=== PATIENT | male | born 1980 | race Two or more races ===

== ENCOUNTER 2022-11-15 11:46 | Inpatient (IN) | payer OTHER, SELFPAY ==
[2022-11-15 12:02] VITALS: BP 117/78; PULSE 72; PULSE 74; RESP 16; TEMP 36.6; O2SAT 98; BMI 20.9
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
[2022-11-15 12:55] LABS: Amphetamine Screen Urine Not Detected (Not Detect); Barbiturates, Urine Not Detected (Not Detect); Benzodiazepines Screen Urine Not Detected (Not Detect); Cannabinoid Screen Urine Not Detected (Not Detect); Cocaine Screen Urine POSITIVE (Not Detect); Fentanyl, urine POSITIVE (Not Detect); Opiate Screen Urine Not Detected (Not Detect); Phencyclidine Screen Urine Not Detected (Not Detect)
--- NOTE | 2022-11-15 12:59 | PC.NURSE ---
provider (alicia Flores) at bedside pt aware of plan of care.
[2022-11-15 13:01] LABS: COVID-19 Test Negative (Negative); IDNOW Serial# BCCEAD1C
[2022-11-15 13:31] LABS: MANUAL DIFF FLAG NO
[2022-11-15 13:33] LABS: Basophils Percent Auto 0.6 % (0-2); Eosinophils Absolute Auto 0.2 X10*3/uL (0.0-0.4); Eosinophils Percent Auto 2.9 % (0-4); Hematocrit 41.9 % (42.0-52.0); Hemoglobin 14.3 g/dl (14.0-18.0); Imm Gran Abs Auto 0.02 X10*3/uL (0.00-0.03); Imm Gran Pct Auto 0.3 % (0.0-0.4); Lymphocytes Absolute Auto 1.8 X10*3/uL (1.2-4.9); Lymphocytes Percent Auto 26.1 % (20-40); Mean Corpuscular HGB Conc 34.1 g/dl (31.0-36.0); Mean Corpuscular Hemoglobin 30.4 pg (27.0-33.0); Mean Corpuscular Volume 89.1 fL (80.0-98.0); Mean Platelet Volume 9.4 fL (9.4-12.4); Monocytes Absolute Auto 0.7 X10*3/uL (0.1-1.2); Monocytes Percent Auto 9.3 % (2-11); Neutrophils Absolute Auto 4.3 x10*3/uL (2.0-8.3); Neutrophils Percent Auto 60.8 % (45-73); Platelet Count 294 X10*3/uL (160-400); Red Cell Distribution Width 12.7 % (11.0-16.0)
[2022-11-15 14:07] LABS: Alanine Aminotransferase 31 U/L (0-40); Albumin Level 4.4 g/dL (3.5-5.0); Alkaline Phosphatase 76 U/L (39-117); Anion Gap 10 (12-20); Aspartate Amino Transferase 22 U/L (5-37); Bilirubin Direct 0.3 mg/dL (0.0-0.5); Bilirubin Total 1.5 mg/dL (0.0-1.0); Blood Urea Nitrogen 17 mg/dL (9-16); Calcium 9.1 mg/dL (8.4-10.2); Carbon Dioxide 30 mmol/L (22-29); Chloride 105 mmol/L (96-108); Creatinine Clr Calc Pharmacy 120.8; Estimated Glomerular Filt Rate > 60; Ethanol < 10 mg/dL; Glucose Random 94 mg/dL (60-115); Magnesium 2.1 mg/dL (1.6-2.6); Potassium 4.3 mmol/L (3.3-5.1); Sodium 141 mmol/L (135-145)
[2022-11-15] MEDS: LORazepam 0.5 MG TABLET PO (18:50)
--- NOTE | 2022-11-15 19:15 | PC.NURSE ---
pt reporting increased anxiety and he was requesting some medications. Dr. Barakat ordered ativan and it was administered per MAR
--- NOTE | 2022-11-15 19:16 | MHC.CARE ---
CARE Team called E[facility], pt was seen in the community and is an inpatient bedsearch
[2022-11-16] MEDS: traZODone HCL 50 MG TABLET 150 MG PO ×2 (00:36→21:21)
[2022-11-16] MEDS: Mirtazapine 15 MG TABLET PO ×2 (00:37→21:20)
[2022-11-16] MEDS: Melatonin 3 MG TABLET PO ×2 (00:38→08:07)
[2022-11-16 05:54] VITALS: BP 120/79; PULSE 79; RESP 17; TEMP 36.6; O2SAT 98
--- NOTE | 2022-11-16 06:49 | PC.NURSE ---
Patient slept through the night, no distress observed/reported, disposition per [facility] is section 12 Inpatient Bed Search, patient pre-accepted to M3 or M5, behavior non concerning, medication compliant, VSS, will continue to monitor.
[2022-11-16] MEDS: Cholecalciferol (Vitamin D3) 25 MCG TABLET PO (08:08)
--- NOTE | 2022-11-16 08:44 | PC.NURSE ---
methadone dose conformed with [facility] of 80 mg on 11/14 with take home for 11/15. conformation faxed to pharm
--- NOTE | 2022-11-16 09:04 | ECG_ITS ---
Test Reason : check qt Blood Pressure : / mmHG Vent. Rate : 075 BPM Atrial Rate : 075 BPM P-R Int : 156 ms QRS Dur : 080 ms QT Int : 384 ms P-R-T Axes : 001 046 046 degrees QTc Int : 428 ms Normal sinus rhythm Normal ECG No previous ECGs available Referred By: Sunil Camacho Electronically Signed By:Christiano Hemphill
--- NOTE | 2022-11-16 09:27 | HE.PHANOTE ---
RE: methadone verification Last dose of [address] [facility] in [place] on 11/14 with take home dose given for 11/15. Verified by Mukesh at clinic on 11/16 @[id number]
[2022-11-16] MEDS: methADONE HCl 20 MG/2 ML ORAL.CONC 80 MG PO (11:52)
--- NOTE | 2022-11-16 14:45 | HE.PHANOTE ---
RE METHADONE 80 MG FROM [facility]
[2022-11-16 17:30] VITALS: BP 108/62; PULSE 86; RESP 20; TEMP 36.7; O2SAT 98
--- NOTE | 2022-11-16 19:14 | PC.ADMIT ---
Nursing Admission Note: Patient is a 42-year-old male. Dx: Unspecified Depressive Disorder. Signed conditional voluntary for admission. Patient presented to [facility] following community assessment due to increased depression with suicidal ideation. Patient easily engaged, calm and cooperative with admission process. Depressed mood, congruent affect. Hopelessness. Presents with good eye contact. Attending to ADLs. Thoughts clear, linear and organized. Patient denies perceptual disturbances. Denies AH/VH. No overt psychosis or expressed delusions. Patient reports major life stressors including of a family member, divorce after 20 years, homelessness, and recent verbal altercation with his mother. Feeling as though he's lost control , reports increased suicidal ideation with plan to jump in the river. Denies HI at this time. Reports recent relapse on heroin after 17 days sober, denies alcohol use. 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 Denies current legal entanglements. Currently on methadone replacement therapy, dose verified with [facility] in [place]. Reports smoking 2 cigarettes daily, declined NRT. TOX screen positive for Cocaine and Fentanyl. Reports sleep disturbance, difficulty falling and maintaining sleep. Reports nightmares. Reports decreased appetite with weight loss of approximately 30 pounds in 6 months. Medical history includes anemia, wears glasses (with patient). Allergy to seafood. COVID negative. Patient hopes to get back to being himself . Patient oriented to unit. Placed on 15 minute safety checks. See nursing assessment/crisis evaluation for further details.
[2022-11-16 20:10] VITALS: BP 113/70; PULSE 75; RESP 18; TEMP 36.8; O2SAT 100
[2022-11-16] MEDS: hydrOXYzine HCL 50 MG TABLET PO (21:21)
[2022-11-16] MEDS: cloNIDine HCL 0.1 MG TABLET PO (21:21)
[2022-11-17 06:00] VITALS: BP 93/51; PULSE 83; RESP 18; TEMP 36.7; O2SAT 100
[2022-11-17] MEDS: methADONE HCl 20 MG/2 ML ORAL.CONC 80 MG PO (09:55)
[2022-11-17] MEDS: Melatonin 3 MG TABLET PO ×2 (09:55→21:13)
[2022-11-17] MEDS: Cholecalciferol (Vitamin D3) 25 MCG TABLET PO (09:55)
[2022-11-17] MEDS: hydrOXYzine HCL 50 MG TABLET PO (09:59)
--- NOTE | 2022-11-17 11:08 | MHC.CLN ---
NUTRITION CONSULT FOR 30# WEIGHT LOSS X 6 MONTHS. VISITED WITH PATIENT IN HIS ROOM. REPORTS UBW [id number]#. CURRENT GPQFYB=504#. WOULD LIKE ENSURE SUPPLEMENT THREE TIMES DAILY. PREFERS [facility]. DINING SERVICES AWARE. SUPPLEMENT PROVIDES 1050 KCALS, 60 G PROTEIN. MADE OWN MEAL CHOICES. AWARE OF SNACKS ON UNIT.
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
[2022-11-17] MEDS: Mirtazapine 30 MG TABLET PO (21:13)
[2022-11-17] MEDS: cloNIDine HCL 0.1 MG TABLET PO (21:13)
[2022-11-17] MEDS: traZODone HCL 50 MG TABLET 150 MG PO (21:14)
[2022-11-17 21:16] VITALS: BP 112/62; PULSE 85; TEMP 36.6; O2SAT 97
[2022-11-18 08:30] VITALS: BP 101/60; PULSE 78; RESP 18; TEMP 36.6; O2SAT 98
[2022-11-18] MEDS: Cholecalciferol (Vitamin D3) 25 MCG TABLET PO (09:30)
[2022-11-18] MEDS: methADONE HCl 20 MG/2 ML ORAL.CONC 80 MG PO (09:31)
[2022-11-18] MEDS: hydrOXYzine HCL 25 MG TABLET PO ×2 (09:44→17:51)
--- NOTE | 2022-11-18 14:06 | HO.PSYCHPN ---
Subjective Subjective Date of Service: 11/18/22 Reason For Visit: SI Interim History: calm, cooperative. states he slept well. c/o low back pain. not using nicotine patch and lidocaine patch bcse he believes they are not helping him. per staff, anx/dep 8/10. eating and sleeping. refusing patches. Mental Status Exam Mental Status Exam Narrative: adequately dressed and groomed. cooperative. no PMA/PMR. fair eye contact. speech soft, nml amount, decreased prosody. thoughts linear and logical. affect constricted. mood i'm good. no SI/SIBI/HI/AVH expressed. Diagnostics Vital Signs (24Hr): Vital Signs - 24 hr 11/17/22 21:16 11/18/22 08:30 Temperature 97.9 F 97.9 F Pulse Rate 85 78 Respiratory Rate 18 Blood Pressure 112/62 101/60 Pulse Oximetry 97 98 Oxygen Delivery Method Room Air Room Air BMI result Body Mass Index 20.9 Labs 11/15/22 13:27 11/15/22 13:27 Medications Medications Current Medications Acetaminophen (Acetaminophen 325 Mg Tablet) 650 mg PO Q6H PRN PRN Reason: Headache/Pain Mild Scale (1-3) Al Hydroxide/Mg Hydroxide (Magnesium Hydrox/Alum Hydrox 30 Ml Oral.Susp) 30 ml PO Q6H PRN PRN Reason: Heartburn/Nausea Clonidine HCl (Clonidine Hcl 0.1 Mg Tablet) 0.1 mg PO BEDTIME RASHMI; Protocol Last Admin: 11/17/22 21:13 Dose: 0.1 mg Hydroxyzine HCl (Hydroxyzine Hcl 25 Mg Tablet) 25 mg PO Q6H PRN PRN Reason: Anxiety Last Admin: 11/18/22 09:44 Dose: 25 mg Magnesium Hydroxide (Milk Of Magnesia 30 Ml Oral.Susp) 30 ml PO DAILY PRN PRN Reason: Constipation Melatonin (Melatonin 3 Mg Tablet) 3 mg PO BEDTIME RASHMI Methadone HCl (Methadone Hcl 20 Mg/2 Ml Oral.Conc) 80 mg PO DAILY RASHMI Last Admin: 11/18/22 09:31 Dose: 80 mg Mirtazapine (Mirtazapine 30 Mg Tablet) 30 mg PO BEDTIME RASHMI Last Admin: 11/17/22 21:13 Dose: 30 mg Nicotine Polacrilex (Nicotine Polacrilex 2 Mg Gum) 2 mg BUCCAL Q2H PRN PRN Reason: Nicotine Cravings Trazodone HCl (Trazodone Hcl 50 Mg Tablet) 150 mg PO BEDTIME [facility] Last Admin: 11/17/22 21:14 Dose: 150 mg Trazodone HCl (Trazodone Hcl 50 Mg Tablet) 50 mg PO BEDTIME MRX1 PRN PRN Reason: Insomnia Vitamin D (Cholecalciferol (Vitamin D3) 25 Mcg Tablet) 25 mcg PO DAILY [facility] Last Admin: 11/18/22 09:30 Dose: 25 mcg Allergies Allergies Allergy/AdvReac Type Severity Reaction Status Date / Time seafood Allergy Anaphylaxis Verified 11/15/22 12:23 Assessment & Plan Assessment & Plan (1) Polysubstance abuse: Status: Acute Code(s): F19.10 - Other psychoactive substance abuse, uncomplicated (2) Depression: Status: Acute Code(s): F32.A - Depression, unspecified Plan 11/17: increase remeron from 15 mg QHS to 30 mg QHS for sleep and depression. continues methadone 80, trazodone 150, and clonidine 0.1 daily as well. refer to [facility], per pt request. 11/18: slept well last night. referrals to [facility] underway. continue detox through the weekend, reassess on monday. Reason for contiued inpatient stay Substantial Risk for: inability to function and rapid decompensation Time Spent With Patient Time: Total time managing care of this patient today __25__ minutes.
[2022-11-18 21:20] VITALS: BP 118/69; PULSE 82; RESP 18; TEMP 36.4; O2SAT 98
[2022-11-18] MEDS: Mirtazapine 30 MG TABLET PO (21:25)
[2022-11-18] MEDS: Melatonin 3 MG TABLET PO (21:25)
[2022-11-18] MEDS: cloNIDine HCL 0.1 MG TABLET PO (21:25)
[2022-11-18] MEDS: traZODone HCL 50 MG TABLET 150 MG PO (21:26)
[2022-11-19 08:30] VITALS: BP 113/62; PULSE 78; RESP 18; TEMP 36.6; O2SAT 100
[2022-11-19] MEDS: Cholecalciferol (Vitamin D3) 25 MCG TABLET PO (10:21)
[2022-11-19] MEDS: methADONE HCl 20 MG/2 ML ORAL.CONC 80 MG PO (10:22)
--- NOTE | 2022-11-19 11:46 | HO.PSYCHPN ---
Subjective Subjective Date of Service: 11/19/22 Reason For Visit: SI Subjective Notes: Conditional Voluntary Interim History: The staff reported the patient slept well, he denies active suicidal ideation he reports that he is feeling better here in the facility. He reported to the staff and he wants to go program after discharge from this facility. On interview the patient denies new symptoms, he is content with the current treatment. Mental Status Exam Mental Status Exam Patient Appearance: Appropriate Patient Orientation: Person and Situation Level of Consciousness: Awake and Appropriate Patient Behavior: Passive Mood Description: Calm Affect Description: Constricted Patient Cognition Impaired: No Ability to Follow Directions: Fair Speech Pattern: Clear Hallucinations: None Delusions: Not Present Thought Process: Linear Thought Content: positive for [place] and positive for Circumstantial Judgement: Poor Diagnostics Vital Signs (24Hr): Vital Signs - 24 hr 11/18/22 21:20 11/19/22 08:30 Temperature 97.6 F 97.9 F Pulse Rate 82 78 Respiratory Rate 18 18 Blood Pressure 118/69 113/62 Pulse Oximetry 98 100 Oxygen Delivery Method Room Air Room Air BMI result Body Mass Index 20.9 Labs 11/15/22 13:27 11/15/22 13:27 Medications Medications Current Medications Acetaminophen (Acetaminophen 325 Mg Tablet) 650 mg PO Q6H PRN PRN Reason: Headache/Pain Mild Scale (1-3) Al Hydroxide/Mg Hydroxide (Magnesium Hydrox/Alum Hydrox 30 Ml Oral.Susp) 30 ml PO Q6H PRN PRN Reason: Heartburn/Nausea Clonidine HCl (Clonidine Hcl 0.1 Mg Tablet) 0.1 mg PO BEDTIME RASHMI; Protocol Last Admin: 11/18/22 21:25 Dose: 0.1 mg Hydroxyzine HCl (Hydroxyzine Hcl 25 Mg Tablet) 25 mg PO Q6H PRN PRN Reason: Anxiety Last Admin: 11/18/22 17:51 Dose: 25 mg Magnesium Hydroxide (Milk Of Magnesia 30 Ml Oral.Susp) 30 ml PO DAILY PRN PRN Reason: Constipation Melatonin (Melatonin 3 Mg Tablet) 3 mg PO BEDTIME RASHMI Last Admin: 11/18/22 21:25 Dose: 3 mg Methadone HCl (Methadone Hcl 20 Mg/2 Ml Oral.Conc) 80 mg PO DAILY RASHMI Last Admin: 11/19/22 10:22 Dose: 80 mg Mirtazapine (Mirtazapine 30 Mg Tablet) 30 mg PO BEDTIME RASHMI Last Admin: 11/18/22 21:25 Dose: 30 mg Nicotine Polacrilex (Nicotine Polacrilex 2 Mg Gum) 2 mg BUCCAL Q2H PRN PRN Reason: Nicotine Cravings Trazodone HCl (Trazodone Hcl 50 Mg Tablet) 150 mg PO BEDTIME [facility] Last Admin: 11/18/22 21:26 Dose: 150 mg Trazodone HCl (Trazodone Hcl 50 Mg Tablet) 50 mg PO BEDTIME MRX1 PRN PRN Reason: Insomnia Vitamin D (Cholecalciferol (Vitamin D3) 25 Mcg Tablet) 25 mcg PO DAILY [facility] Last Admin: 11/19/22 10:21 Dose: 25 mcg Allergies Allergies Allergy/AdvReac Type Severity Reaction Status Date / Time seafood Allergy Anaphylaxis Verified 11/15/22 12:23 Assessment & Plan Assessment & Plan (1) Polysubstance abuse: Status: Acute Code(s): F19.10 - Other psychoactive substance abuse, uncomplicated (2) Depression: Status: Acute Code(s): F32.A - Depression, unspecified Plan 11/17: increase remeron from 15 mg QHS to 30 mg QHS for sleep and depression. continues methadone 80, trazodone 150, and clonidine 0.1 daily as well. refer to [facility], per pt request. 11/18: slept well last night. referrals to [facility] underway. continue detox through the weekend, reassess on monday. 11/19 no new symptoms, stable, no change on treatment Reason for contiued inpatient stay Substantial Risk for: inability to function, rapid decompensation and med/psych decompensation Time Spent With Patient Time: Total time managing care of this patient today _20___ minutes.
[2022-11-19 20:40] VITALS: BP 118/71; PULSE 89; RESP 18; TEMP 36.4; O2SAT 98
[2022-11-19] MEDS: Melatonin 3 MG TABLET PO (20:42)
[2022-11-19] MEDS: Mirtazapine 30 MG TABLET PO (20:42)
[2022-11-19] MEDS: cloNIDine HCL 0.1 MG TABLET PO (20:42)
[2022-11-19] MEDS: traZODone HCL 50 MG TABLET 150 MG PO (20:42)
[2022-11-20 08:15] VITALS: BP 112/72; PULSE 74; RESP 18; TEMP 36.7; O2SAT 100
[2022-11-20] MEDS: methADONE HCl 20 MG/2 ML ORAL.CONC 80 MG PO (09:30)
[2022-11-20] MEDS: Cholecalciferol (Vitamin D3) 25 MCG TABLET PO (09:30)
--- NOTE | 2022-11-20 12:57 | HO.PSYCHPN ---
Subjective Subjective Date of Service: 11/20/22 Reason For Visit: SI Subjective Notes: Conditional Voluntary Interim History: The nursing staff reported the patient slept well last night, he has been pleasant peers and staff. He had good appetite and he denies anxiety or depression. The staff has noticed that he has a brighter affect. On interview the patient denies new symptoms he is able to contract for safety in the facility. Mental Status Exam Mental Status Exam Patient Appearance: Appropriate Patient Orientation: Person and Situation Level of Consciousness: Awake and Appropriate Patient Behavior: Guarded and Passive Mood Description: Calm Affect Description: Constricted Ability to Follow Directions: Good Speech Pattern: Impoverished and Appropriate Hallucinations: None Delusions: Not Present Thought Process: Linear Thought Content: positive for Circumstantial Judgement: Fair Diagnostics Vital Signs (24Hr): Vital Signs - 24 hr 11/19/22 20:40 11/20/22 08:15 Temperature 97.6 F 98.0 F Pulse Rate 89 74 Respiratory Rate 18 18 Blood Pressure 118/71 112/72 Pulse Oximetry 98 100 Oxygen Delivery Method Room Air Room Air BMI result Body Mass Index 20.9 Labs 11/15/22 13:27 11/15/22 13:27 Medications Medications Current Medications Acetaminophen (Acetaminophen 325 Mg Tablet) 650 mg PO Q6H PRN PRN Reason: Headache/Pain Mild Scale (1-3) Al Hydroxide/Mg Hydroxide (Magnesium Hydrox/Alum Hydrox 30 Ml Oral.Susp) 30 ml PO Q6H PRN PRN Reason: Heartburn/Nausea Clonidine HCl (Clonidine Hcl 0.1 Mg Tablet) 0.1 mg PO BEDTIME RASHMI; Protocol Last Admin: 11/19/22 20:42 Dose: 0.1 mg Hydroxyzine HCl (Hydroxyzine Hcl 25 Mg Tablet) 25 mg PO Q6H PRN PRN Reason: Anxiety Last Admin: 11/18/22 17:51 Dose: 25 mg Magnesium Hydroxide (Milk Of Magnesia 30 Ml Oral.Susp) 30 ml PO DAILY PRN PRN Reason: Constipation Melatonin (Melatonin 3 Mg Tablet) 3 mg PO BEDTIME RASHMI Last Admin: 11/19/22 20:42 Dose: 3 mg Methadone HCl (Methadone Hcl 20 Mg/2 Ml Oral.Conc) 80 mg PO DAILY RASHMI Last Admin: 11/20/22 09:30 Dose: 80 mg Mirtazapine (Mirtazapine 30 Mg Tablet) 30 mg PO BEDTIME RASHMI Last Admin: 11/19/22 20:42 Dose: 30 mg Nicotine Polacrilex (Nicotine Polacrilex 2 Mg Gum) 2 mg BUCCAL Q2H PRN PRN Reason: Nicotine Cravings Trazodone HCl (Trazodone Hcl 50 Mg Tablet) 150 mg PO BEDTIME [facility] Last Admin: 11/19/22 20:42 Dose: 150 mg Trazodone HCl (Trazodone Hcl 50 Mg Tablet) 50 mg PO BEDTIME MRX1 PRN PRN Reason: Insomnia Vitamin D (Cholecalciferol (Vitamin D3) 25 Mcg Tablet) 25 mcg PO DAILY [facility] Last Admin: 11/20/22 09:30 Dose: 25 mcg Allergies Allergies Allergy/AdvReac Type Severity Reaction Status Date / Time seafood Allergy Anaphylaxis Verified 11/15/22 12:23 Assessment & Plan Assessment & Plan (1) Polysubstance abuse: Status: Acute Code(s): F19.10 - Other psychoactive substance abuse, uncomplicated (2) Depression: Status: Acute Code(s): F32.A - Depression, unspecified Plan 11/17: increase remeron from 15 mg QHS to 30 mg QHS for sleep and depression. continues methadone 80, trazodone 150, and clonidine 0.1 daily as well. refer to [facility], per pt request. 11/18: slept well last night. referrals to [facility] underway. continue detox through the weekend, reassess on monday. 11/19 no new symptoms, stable, no change on treatment 11/20 keep same treatment Reason for contiued inpatient stay Substantial Risk for: inability to function, rapid decompensation and med/psych decompensation Time Spent With Patient Time: Total time managing care of this patient today __20__ minutes.
[2022-11-20] MEDS: Acetaminophen 325 MG TABLET 650 MG PO (14:56)
[2022-11-20 20:14] VITALS: BP 112/69; PULSE 79; RESP 16; TEMP 36.6; O2SAT 100
[2022-11-20] MEDS: cloNIDine HCL 0.1 MG TABLET PO (20:17)
[2022-11-20] MEDS: Melatonin 3 MG TABLET PO (20:17)
[2022-11-20] MEDS: Mirtazapine 30 MG TABLET PO (20:17)
[2022-11-20] MEDS: traZODone HCL 50 MG TABLET 150 MG PO (20:17)
[2022-11-21 08:40] VITALS: BP 110/66; PULSE 74; RESP 18; TEMP 36.4; O2SAT 100
[2022-11-21] MEDS: Cholecalciferol (Vitamin D3) 25 MCG TABLET PO (09:44)
[2022-11-21] MEDS: methADONE HCl 20 MG/2 ML ORAL.CONC 80 MG PO (09:45)
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
[2022-11-21 20:15] VITALS: BP 131/57; PULSE 84; RESP 18; TEMP 36.6; O2SAT 100
[2022-11-21] MEDS: Melatonin 3 MG TABLET PO (21:02)
[2022-11-21] MEDS: cloNIDine HCL 0.1 MG TABLET PO (21:02)
[2022-11-21] MEDS: Mirtazapine 30 MG TABLET PO (21:02)
[2022-11-21] MEDS: traZODone HCL 50 MG TABLET 150 MG PO (21:02)
[2022-11-22] MEDS: Cholecalciferol (Vitamin D3) 25 MCG TABLET PO (08:26)
[2022-11-22] MEDS: methADONE HCl 20 MG/2 ML ORAL.CONC 80 MG PO (08:27)
--- NOTE | 2022-11-22 10:46 | PC.NURSE ---
Dejan is alert, fully oriented, pleasant and cooperative with discharge process. He denies ideation, plan or intent to harm self or others, He verbalizes understanding of discharge plan including medications and appointments
== END 2022-11-22 10:46 | disposition home or self-care (01) | DRG 754 ==
LOC: HO.ED 16:02 → HO.PADLT16 11-16 16:40
PROVIDERS: Physician Assistant; Admitting Provider Psychiatry & Neurology Psychiatry; Emergency Provider Emergency Medicine; Visit Provider Psychiatry & Neurology Psychiatry
DX: F32.A Depression, unspecified (principal); R45.851 Suicidal ideations; F11.20 Opioid dependence, uncomplicated; F19.10 Other psychoactive substance abuse, uncomplicated; Z20.822 Contact with and (suspected) exposure to COVID-19; Z59.02 Unsheltered homelessness; Z79.899 Other long term (current) drug therapy
CPT/HCPCS: 80048; 80076; 80307; 82077; 83735; 85025; 87635; 93005; 99285

== ENCOUNTER 2023-09-07 16:43 | Inpatient (IN) | payer OTHER, SELFPAY ==
[2023-09-07 16:58] VITALS: BP 123/89; PULSE 87; RESP 18; TEMP 37.1; O2SAT 95; BMI 23.1
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
[2023-09-07 17:38] LABS: Alanine Aminotransferase 13 U/L (0-40); Albumin Level 4.4 g/dL (3.5-5.0); Alkaline Phosphatase 83 U/L (39-117); Anion Gap 13 (12-20); Aspartate Amino Transferase 16 U/L (5-37); Bilirubin Total 0.7 mg/dL (0.0-1.0); Blood Urea Nitrogen 14 mg/dL (9-16); Calcium 9.6 mg/dL (8.4-10.2); Carbon Dioxide 26 mmol/L (22-29); Chloride 106 mmol/L (96-108); Creatinine Clr Calc Pharmacy 139.9; Estimated Glomerular Filt Rate > 60; Ethanol < 10 mg/dL; Glucose Random 99 mg/dL (60-115); Sodium 141 mmol/L (135-145); Total Protein 7.8 g/dL (6.5-8.0)
--- NOTE | 2023-09-07 19:05 | PC.NURSE ---
Addendum entered by Mary Alejo 09/07/23 19:06: at rest Original Note: patient appears to remain asleep at present respirations are even and unlabored patient appears in no distress
[2023-09-08 02:51] VITALS: BP 124/63; PULSE 65; RESP 17; TEMP 36.6; O2SAT 98
[2023-09-08 07:53] VITALS: BP 123/66; PULSE 82; RESP 16; TEMP 36.9; O2SAT 99
--- NOTE | 2023-09-08 09:31 | HE.PHANOTE ---
methadone confirmation form received patient takes 80mg from [facility]. last dose at 09/07/2023
--- NOTE | 2023-09-08 10:40 | PC.NURSE ---
calm, pleasant and cooperative this morning, medicated as ordered, has been eating breakfast and snacks
--- NOTE | 2023-09-08 12:39 | PHA.MEDREC ---
Pharmacy Consult ? Medication Reconciliation Pharmacy has reviewed the medication reconciliation completed by
[2023-09-08 15:21] VITALS: BP 103/63; PULSE 69; RESP 18; O2SAT 98
[2023-09-08 15:30] VITALS: BMI 23.5
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
--- NOTE | 2023-09-08 17:29 | PM.EVENT ---
Event Note Date of Service: 09/08/23 Event Note: ? athletes foot, empiric antifungal topical Time Spent With Patient Time: Total time managing care of this patient today ____ minutes.
[2023-09-08 20:50] VITALS: BP 110/65; PULSE 65
[2023-09-09 06:00] VITALS: BP 90/60; PULSE 77; TEMP 36.9; O2SAT 99
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
[2023-09-09 19:04] VITALS: BP 107/62; PULSE 72; RESP 18; TEMP 36.6; O2SAT 100
[2023-09-09 22:42] VITALS: BP 100/70; PULSE 76; O2SAT 100
[2023-09-10 08:00] VITALS: BP 104/61; PULSE 67; RESP 14; TEMP 36.9; O2SAT 99
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
[2023-09-10 19:55] VITALS: BP 119/71; PULSE 82; RESP 16; TEMP 36.8; O2SAT 100
[2023-09-11 07:40] VITALS: BP 108/66; PULSE 84; RESP 16; TEMP 36.8; O2SAT 100
[2023-09-11 08:22] VITALS: BP 89/53; PULSE 75; RESP 16; TEMP 36.8; O2SAT 100
[2023-09-11 08:25] VITALS: BP 108/66; PULSE 84; RESP 18
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
[2023-09-11] MEDS: hydrOXYzine HCL 50 MG TABLET PO (16:30)
[2023-09-11] MEDS: Nicotine Polacrilex 2 MG GUM 4 MG BUCCAL (16:32)
[2023-09-11 20:00] VITALS: BP 105/56; PULSE 79; RESP 16; TEMP 36.8; O2SAT 100
[2023-09-11] MEDS: traZODone HCL 50 MG TABLET 150 MG PO (20:00)
[2023-09-11] MEDS: Melatonin 3 MG TABLET 6 MG PO (20:00)
[2023-09-11] MEDS: Mirtazapine 30 MG TABLET PO (20:00)
[2023-09-11] MEDS: cloNIDine HCL 0.2 MG TABLET PO (20:01)
[2023-09-11] MEDS: Clotrimazole 1 % Cream 15 GM TUBE 1 APPL TOPICAL (20:01)
[2023-09-12 07:30] VITALS: BP 99/63; PULSE 67; RESP 16; TEMP 36.6; O2SAT 100
[2023-09-12] MEDS: methADONE HCl 20 MG/2 ML ORAL.CONC 80 MG PO (08:30)
[2023-09-12] MEDS: Cholecalciferol (Vitamin D3) 25 MCG TABLET PO (08:34)
[2023-09-12] MEDS: Thiamine HCL 100 MG TABLET PO (08:34)
[2023-09-12] MEDS: ARIPiprazole 5 MG TABLET PO (08:35)
[2023-09-12] MEDS: cloNIDine HCL 0.2 MG TABLET PO (08:35)
[2023-09-12] MEDS: Nicotine Polacrilex 2 MG GUM BUCCAL (09:38)
== END 2023-09-12 10:40 | disposition home or self-care (01) | DRG 754 ==
LOC: HO.ED 17:22 → HO.PADLT16 09-08 14:45
PROVIDERS: Admitting Provider Psychiatry & Neurology Psychiatry; Emergency Provider Emergency Medicine; Visit Provider Psychiatry & Neurology Psychiatry
DX: F32.A Depression, unspecified (principal); R45.851 Suicidal ideations; F11.20 Opioid dependence, uncomplicated; F17.210 Nicotine dependence, cigarettes, uncomplicated; B35.3 Tinea pedis; Z71.6 Tobacco abuse counseling; Z20.822 Contact with and (suspected) exposure to COVID-19; Z79.899 Other long term (current) drug therapy
CPT/HCPCS: 36415; 80053; 80061; 80143; 80179; 80307; 81001; 82607; 82746; 83036; 84439; 84443; 85025; 87635; 93005; 99284; S9485

== ENCOUNTER → 2023-09-08 09:02 | Outpatient (BNV) | payer OTHER, SELFPAY | PROVIDERS: Admitting Provider Psychiatry & Neurology Psychiatry; Emergency Provider Emergency Medicine; Visit Provider Internal Medicine Cardiovascular Disease | DX: I45.81 Long QT syndrome (principal) | CPT/HCPCS: 93010 ==

== ENCOUNTER → 2023-09-08 14:39 | Outpatient (BNV) | payer OTHER, SELFPAY | PROVIDERS: Admitting Provider Psychiatry & Neurology Psychiatry; Emergency Provider Emergency Medicine; Visit Provider Psychiatry & Neurology Psychiatry | DX: F33.2 Major depressive disorder, recurrent severe without psychotic features (principal); F19.90 Other psychoactive substance use, unspecified, uncomplicated | CPT/HCPCS: 99231; 99232 ==

== ENCOUNTER → 2024-09-25 10:22 | Outpatient (BNV) | payer MEDICAID, SELFPAY | PROVIDERS: Admitting Provider Registered Nurse; Emergency Provider Emergency Medicine; Visit Provider Internal Medicine Cardiovascular Disease | DX: R45.851 Suicidal ideations (principal) | CPT/HCPCS: 93010 ==

== ENCOUNTER → 2024-09-25 13:23 | Outpatient (BNV) | payer OTHER, SELFPAY | PROVIDERS: Admitting Provider Registered Nurse; Emergency Provider Emergency Medicine; Visit Provider Psychiatry & Neurology Psychiatry | DX: F33.9 Major depressive disorder, recurrent, unspecified (principal); F43.10 Post-traumatic stress disorder, unspecified; F11.90 Opioid use, unspecified, uncomplicated; F14.10 Cocaine abuse, uncomplicated | CPT/HCPCS: 99231; 99232; 99233 ==

== ENCOUNTER 2024-10-03 14:31 | Inpatient (IN) | payer OTHER, SELFPAY ==
[2024-10-03 14:45] VITALS: BP 107/71; PULSE 82; RESP 18; TEMP 37.2; O2SAT 97
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
[2024-10-03] MEDS: hydrOXYzine HCL 50 MG TABLET PO (16:32)
[2024-10-03] MEDS: QUEtiapine Fumarate 50 MG TABLET PO (16:33)
[2024-10-03 16:51] VITALS: BMI 25.5
--- NOTE | 2024-10-03 16:56 | HE.PHANOTE ---
Methadone Pt received from [facility] ([phone]). Per NIURKA Ha, pt last received 58 mg on 09/12/24. Pt also received a guest dose at [facility] on 10/03/24, dose of 57.5 mg.
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
--- OUTSIDE RECORDS SUMMARY | 2024-10-03 18:29 | XMS_ITS | Encounter Summary ---
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 Emergency [address] [place] [id number] Channing Ramirez MD [address] [place] [address] Depression, unspecified depression type (Primary Dx); Suicidal ideation [facility]charge [facility]position: [facility] Social History Tobacco Use Types Packs/Day Years Used Date Smoking Tobacco: Never Assessed Sex and Gender Information Value Date Recorded Sex Assigned at Male 10/03/2024 3:59 AM EST Gender Identity Male 10/03/2024 3:59 AM EST Sexual Orientation Straight 10/03/2024 3: 59 AM EST Job Start Date Occupation Industry Not on file Not on file Not on file documented as of this encounter Last Filed Vital Signs Vital Sign Reading Time Taken Comments Blood Pressure 134/76 10/03/2024 2:30 PM EST Pulse 87 10/03/2024 2:30 PM EST Temperature 37 ??C (98.6 ??F) 10/03/2024 2:30 PM EST Respiratory Rate 18 10/03/2024 2:30 PM EST Oxygen Saturation 100% 10/03/2024 2:30 PM EST Inhaled Oxygen Concentration - - Weight 81.6 kg (180 lb) 10/03/2024 2:09 AM EST Height 182.9 cm (6') 10/03/2024 2:09 AM EST Body Mass Index 24.41 10/03/2024 2:09 AM EST documented in this encounter Medications at Time of Discharge Medication Sig Dispensed Refills Start Date End Date cloNIDine (CATAPRES) 0.2 mg tablet Take 1 tablet (0.2 mg total) by mouth 2 (two) times a day. 09/19/2024 QUEtiapine (SEROquel) 50 mg tablet Take 1 tablet (50 mg total) by mouth 2 (two) times a day if needed. 09/19/2024 documented as of this encounter Discharge Disposition Disposition Code Departure Means Destination Comment [facility] documented in this encounter Progress Notes * Channing Ramirez MD - 10/03/2024 3:11 PM EST Clinical Impressions as of 10/03/24 1512 Depression, unspecified depression type Suicidal ideation Transfer to Another Facility 1. Depression, unspecified depression type 2. Suicidal ideation Procedures Patient accepted at [facility] for transfer. * Ioana Hubbard LCSW - 10/03/2024 10:19 AM EST BED Found- Patient accepted to [facility], by Dr. Mat Chaney. ETA will be determined during nurse to nurse. * Tiff Banegas RN - 10/03/2024 9:36 AM EST Verified dose of Seroquel and Clonidine prescribed to pt through [facility] pharm. * Tiff Banegas RN - 10/03/2024 8:30 AM EST Attempted Med Rec through [facility] and [facility]. Per [facility], pt has not picked up scripts since December 2023.Per [facility], pt has not picked up prescribed scripts. Last picked up scripts at [facility] 4yrs ago.Notified MD. * Ann Mello RN - 10/03/2024 3:04 AM EST Pt has note that he received 58mg of methadone at [facility] 10/02/24 @ 0830. Document uploaded into chart via shell press operator. * Ann Mello RN - 10/03/2024 2:25 AM EST Assumed care of pt. Pt admits SI, states he has a plan but will not disclose plan with this RN. Pt states he was discharged this morning from [facility] for same problem. Pt teary eyed. Denies HI, pt reports recent divorce. States he is on Seroquel once in the morning and has been compliant with medication. Denies drug or alcohol use today. Pt hx of methadone. * Jena Humphries RN - 10/03/2024 1:51 AM EST REPORTS SI W/PLAN. DEPRESSION XCOUPLE WEEKS. * KAREN Colby - 10/03/2024 1:49 AM EST Emergency Medicine Note Patient Name: Dejan Harris Initial Evaluation: 10/03/2024 : 1980 Patient's PCP: David Gupta MD Emergency Physician: KAREN Colby History of Present Illness Chief Complaint: Chief Complaint Patient presents with Mental Health Problem REPORTS DEPRESSION & SI HPI: This is a 44-year-old male with a history of anemia presenting for evaluation of suicidal ideation without any formal plan. He reports increased depression and feeling unsafe around his family members. He was at [facility] this morning, was subsequently discharged. He states he has been having racing thoughts all day and they finally became too much. He does have a history of self-injurious behavior in the past. He states he was most recently hospitalized a few months back in [place].He denies any drug or alcohol use. He has no physical complaints at this time. ROS: I have performed a ROS with the pertinent positives and negatives documented in the history ofpresent illness. Previous History No past medical history on file. No past surgical history on file. No family history on file. is allergic to shellfish containing products and shellfish derived. No current facility-administered medications on file prior to encounter. No current outpatient medications on file prior to encounter. Physical Exam ED Triage Vitals [10/03/24 0209] Temp Heart Rate Resp BP 36.8 ??C (98.2 ??F) 92 -- 128/85 SpO2 Temp Source Heart Rate Source Patient Position 100 % Oral Monitor Sitting BP Location FiO2 (%) Left arm -- General: Well-appearing, well nourished, in no acute distress HEENT: PERRL, EOMI, external ears and nose appear unremarkable, airway is patent Neck: Supple, full range of motion Chest: No increased respiratory effort or accessory muscle use Extremities: Normal ROM, No edema dependently ambulating without difficulty Skin: Warm and dry Neuro: Alert and oriented, no focal deficits Results Labs Reviewed COMPREHENSIVE METABOLIC PANEL - Abnormal Result Value Sodium 136 Potassium 4.1 Chloride 103 CO2 26 Anion Gap 7 Glucose 103 (*) BUN 19 Creatinine 0.75 eGFR 115 BUN/Creatinine Ratio 25.3 Calcium 9.6 AST (SGOT) 31 ALT (SGPT) 48 Alkaline Phosphatase 95 Total Protein 7.5 Albumin 4.0 Total Bilirubin 1.2 ACETAMINOPHEN LEVEL - Abnormal Acetaminophen Level <2.0 (*) CBC WITH AUTO DIFFERENTIAL - Abnormal WBC 10.0 RBC 4.30 (*) Hemoglobin 13.0 (*) Hematocrit 38.2 (*) MCV 89.5 MCH 30.4 MCHC 34.0 RDW 13.3 Platelets 378 MPV 9.7 NRBC 0.0 NRBC Absolute 0.00 Neutrophils Relative 80.6 Lymphocytes Relative 11.9 Monocytes Relative 6.5 Eosinophils Relative 0.2 Basophils Relative 0.3 Immature Granulocytes Relative 0.5 Neutrophils Absolute 8.02 (*) Lymphocytes Absolute 1.18 Monocytes Absolute 0.65 Eosinophils Absolute 0.02 Basophils Absolute 0.03 Immature Granulocytes Absolute 0.05 (*) ETHANOL - Normal Ethanol Level <3 SALICYLATE LEVEL - Normal Salicylate Level 2.0 CBC AND DIFFERENTIAL Narrative: The following orders were created for panel order CBC and differential. Procedure Abnormality Status --------- ------ CBC auto differential[[id number]] Abnormal Final result Please view results for these tests on the individual orders. DRUG ABUSE SCREEN 8A PANEL, URINE BUPRENORPHINE SCREEN, URINE PHENCYCLIDINE, URINE METHADONE SCREEN, URINE Abnormal Labs Reviewed COMPREHENSIVE METABOLIC PANEL - Abnormal; Notable for the following components: Result Value Glucose 103 (*) All other components within normal limits ACETAMINOPHEN LEVEL - Abnormal; Notable for the following components: Acetaminophen Level <2.0 (*) All other components within normal limits CBC WITH AUTO DIFFERENTIAL - Abnormal; Notable for the following components: RBC 4.30 (*) Hemoglobin 13.0 (*) Hematocrit 38.2 (*) Neutrophils Absolute 8.02 (*) Immature Granulocytes Absolute 0.05 (*) All other components within normal limits No orders to display I have discussed the incidental/abnormal imaging and/or lab abnormalities with the patient and haveinstructed them the need for further evaluation and workup with their primary care doctor. I have provided the patient with a paper copy of the abnormality. The laboratory results, imaging results and other diagnostic exam results were reviewed in the EMR. EKG Interpretation Critical Care Time None ? Medical Decision Making Medications - No data to display Clinical Impressions as of 10/03/[address] Depression, unspecified depression type Suicidal ideation ED Observation Note Encounter: 10/03/2024 3:02 AM Vital Signs reviewed. Crisis evaluation is pending. No medical complaints at this time. Reviewed all pertinent PMHx, SHx, and patient medication. FMHx: Comments: Patient seen and evaluated, vitals reviewed, lab work is pending. He has no medical complaints at this time, presenting for evaluation of increased depression and suicidal ideation without any formalplan. He is medically cleared for crisis evaluation. He will remain on continuous 4-1 observation while in the emergency department as long as he remains calm and cooperative as he is thus far. Anticipate that patient will be signed out at change of shift roughly 7 AM pending crisis evaluation. Procedures Procedures Diagnosis 1. Depression, unspecified depression type 2. Suicidal ideation Disposition Data Unavailable ED Prescriptions None Physician Attestation KAREN Colby 10/03/24309 documented in this encounter Consult Notes * Ioana Hubbard LCSW - 10/03/2024 9:10 AM ESTAssociated Order(s): IP CONSULT TO [facility] - Crisis Assessment Important times Time of arrival: 01:49 Time of referral: 03:11 Time of readiness: 03:15 Time assessment started: 07:45 Time of disposition: 08:15 Location: [facility] Emergency Room (ER) Consulted case with: BO Norris, FUAD DEMOGRAPHIC INFORMATION Name Race/Ethnicity Language / need vegetable thinner? Dejan Harris 1980 Luxembourgish/Paraguayan/No Gender/Gender Identity Marital Status Address Phone Number Male [address] [address] Insurance Insurance ID Attending Provider MRN# [id number] Guardian - if yes, contact info. Farina Status State Agency Involvement Sridhar's Order None None None None Alternative placement details Billing Code None [id number] -*PURPOSE OF CONSULT/PRESENTING PROBLEM*- Dejan is a 44-year-old male who is being seen by [facility] secondary to increased depression and suicidal ideation. He reported that he was at [facility] M3 the morning prior to presenting to [facility] ED and was subsequently discharged. During the assessment, Dejan endorsed vaguesuicidal ideation due to increased depression and stressors. He reports that he recently went through a divorce and that his roommates hung himself last year. Per documentation, there is a history ofself-injurious behavior. He denies HI/AH/VH. -*MEDICAL CHIEF COMPLAINT*- Dejan denied any medical complaints during the assessment. Social/Educational History: Guardian - None Farina Status: None State Agency Involvement: None Sridhar's Order: None Marital Status: Alternative Placement Details: None Living Situation for patient: Patient reports living with his mother. Household Members/Age: mother, age 65 Friendships/Family/Social Peer Support/Relationships: none reported Highest level of education: did not discuss Comments (Include Learning Needs): Occupation: not employed Employment/Extracurricular Activities/Hobbies: did not discuss Limitations of Daily Activities: Strengths/Supports: Dejan is help-seeking; Dejan can advocate for his needs; Dejan appears to befuture-oriented, Dejan participates in methadone maintenance treatment. -*LIVING SITUATION*- Dejan reported currently staying with his mother in [place], [place]. -*STRENGTHS & SUPPORTS*- - Dejan is help-seeking. - Dejan can advocate for his needs. - Dejan appears to be future oriented - Dejan participates in methadone maintenance treatment -*COLLATERRALS, CONTACT INFORMATION, AND ENGAGEMENT LEVEL*- Therapist: None Psychiatrist: None PCP: David Gupta MD Family: Halqver-ms-orm; Teo Coles [phone]: Did not contact Other: [facility] M3: called to confirm recent inpatient psychiatric admission. -*MENTAL STATUS EXAM*- Speech: WNL Eye Contact: Intermittent Motor Activity: Slowed Mood: Depressed Affect: Congruent Sleep: Poor; Patient reported poor sleep and nightmares. Appetite: Fair Memory: Mild Impairment Attention/ Concentration: WNL Behavior: Cooperative Hallucinations: None reported Delusions: None reported Thought Content: WNL SI: presence HI: denied Thought Process: WNL Orientation Impairment: None Insight: Poor Judgment: Poor Impulse Control: Poor -*SUBSTANCE USE*- Dejan has a history of heroin and cocaine use with intermittent periods of sobriety. He reports being stable on current methadone dose. Toxicology screen on 10/03/2024 was positive for cocaine and methadone. SUBSTANCE USE TREATMENT HISTORY: Dejan reported a history of a detox admission one year ago. [facility] [address] FAMILY HISTORY OF SUBSTANCE USE: Dejan denied a family history of substance use. -*MENTAL HEALTH*- Past/Current Diagnoses: Depression, cocaine use disorder Current Medications: TREATMENT HISTORY: Dejan reports that he was recently admitted to [facility] for 3 days and was discharged yesterday. He reports an additional inpatient psychiatric admission at a hospital in [place]. FAMILY HISTORY OF MENTAL ILLNESS: Dejan denied a family history of mental illness. TRAUMA HISTORY: Dejan has a history of family conflicts. He reports that his roommate hung himself last year. He denied any childhood trauma. -*RISK ASSESSMENT*- Self-Harm: Past, per ED documentation Suicidality: Current; Vague and Intermittent Homicidally: None Physical Assault: None Physical Aggression: None Property Damage: None Verbal Aggression: None Family History of suicide: None reported Protective factor: Dejan is help-seeking. Dejan can advocate for his needs. Appears to be future-oriented Participates in methadone maintenance treatment. Risk factors: Dejan endorses current suicidal ideation. Dejan denies having any current providers. Dejan has a history of substance use. Dejan was discharged from an inpatient psychiatric hospital within the last 72 hours. Suicide risk: Based on history and current presentation, patient's level of risk for intentional lethal harm is moderate; Dejan endorses intermittent suicidal ideation. -*Risk Assessment Summary and Safety Plan*- SAFETY PLAN COMPLETED? No CONSIDERATIONS FOR REFERRALS: Transportation: Relies on public transportation Preferred Gender of Provider: No preference Appt Times Availability: Any -*INTERVENTIONS*- - Risk assessment - Motivational Interviewing - Active listening - Provided support -*RESPONSE TO INTERVENTIONS*- Dejan was cooperative throughout the assessment. 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 He was discharged from [place] [address] approximately 24 hours ago. Given this information, Dejan would benefit from an inpatient psychiatric admissionfor safety and containment, psychiatric medication evaluation, diagnostic clarification, mood stabilization, an opportunity to engage in a therapeutic treatment through individual and group counseling to develop adaptive coping/symptoms management skills and assistance in accessing community resources at discharge. It is a pleasure to assist in the care of Dejan Harris here at [facility]. This report is written and finalized by: BO Castro Student Diver Pumper Under the Supervision of BO Weiss, [facility] Behavioral Health Specialist [facility] (tel): / (fax): documented in this encounter Plan of Treatment Pending Results Name Type Priority Associated Diagnoses Date /Time ECG 12 lead ECG STAT 10/03/2024 12 :26 PM EST documented as of this encounter Procedures Procedure Name Priority Date/Time Associated Diagnosis Comments ECG 12-LEAD STAT 10/03/2024 12:26 PM EST DRUG ABUSE SCREEN 8A PANEL, URINE STAT 10/03/2024 3:47 AM EST BUPRENORPHINE SCREEN, URINE STAT 10/03/2024 3:47 AM EST METHADONE SCREEN, URINE STAT 10/03/2024 3:47 AM EST PHENCYCLIDINE, URINE STAT 10/03/2024 3:47 AM EST CBC WITH AUTO DIFFERENTIAL STAT 10/03/2024 2:19 AM EST CBC AND DIFFERENTIAL STAT 10/03/2024 2:19 AM EST ETHANOL STAT 10/03/2024 2:19 AM EST ACETAMINOPHEN LEVEL STAT 10/03/2024 2 :19 AM EST SALICYLATE LEVEL STAT 10/03/2024 2:19 AM EST COMPREHENSIVE METABOLIC PANEL STAT 10/03/2024 2:19 AM EST documented in this encounter Results * (ABNORMAL) Methadone, urine (10/03/2024 3:47 AM EST) Methadone Screen, Urine Positive (A) Negative LAB CHEMISTRY METHOD 10/03/2024 4:59 AM EST [facility] Comment: Assay cutoff 300 ng/mL Semi-quantitative assay for screening purposes only. Unconfirmed screening result should not be used for non-medical purposes. *ALTERNATE METHOD CONFIRMATION DONE UPON REQUEST ONLY* Urine Urine specimen obtained by clean catch procedure / Unknown Non-blood Collection / Unknown 10/03/2024 3:47 AM EST 10/03/2024 4:33 AM EST Pablito Montelongo MD LAB URINE ORDERABLES Performing Organization Address [facility] Co de Phone Number [facility] [address] [place] [address], [place] [phone] * Phencyclidine, urine (10/03/2024 3:47 AM EST) PCP Scrn, Ur Negative Negative LAB CHEMISTRY METHOD 10/03/2024 4:59 AM EST [facility] Comment: Assay cutoff 25 ng/mL Semi-quantitative assay for screening purposes only. Unconfirmed screening result should not be used for non-medical purposes. *ALTERNATE METHOD CONFIRMATION DONE UPON REQUEST ONLY* Urine Urine specimen obtained by clean catch procedure / Unknown Non-blood Collection / Unknown 10/03/2024 3:47 AM EST 10/03/2024 4:33 AM EST Pablito Montelongo MD LAB URINE ORDERABLES Performing Organization Address [facility]/ZIP Co de Phone Number [facility] [address] [place] [address], [place] [phone] * Buprenorphine screen, urine (10/03/2024 3:47 AM EST) Buprenorphine Screen Urine Negative Negative LAB CHEMISTRY METHOD 10/03/2024 4:59 AM EST [facility] Urine Urine specimen obtained by clean catch procedure / Unknown Non-blood Collection / Unknown 10/03/2024 3:47 AM EST 10/03/2024 4:33 AM EST Narrative [facility] - 10/03/2024 4:59 AM EST Assay cutoff 5 ng/mL Semi-quantitative assay for screening purposes only. Unconfirmed screening result should not be used for non-medical purposes. *ALTERNATE METHOD CONFIRMATION DONE UPON REQUEST ONLY* Pablito Montelongo MD LAB URINE ORDERABLES [facility] [address] [place] [address], * (ABNORMAL) Drug abuse screen 8a panel, urine (10/03/2024 3:47 AM EST) Amphetamine Screen, Ur Negative Negative LAB CHEMISTRY METHOD 5 4:59 AM [facility] Comment:Certain OTC medicati ons containing ephedrine, phenylephrine, pseudoephedrine and phenylpropanolamine can cause false positive results. Barbiturate Screen, Ur Negative Negative LAB CHEMISTRY METHOD 5 4:59 AM [facility] Benzodiazepine Screen, Ur Negative Negative LAB CHEMISTRY METHOD 5 4:59 AM [facility] Cocaine Screen, Ur Positive(A ) Negative LAB CHEMISTRY METHOD 5 4:59 AM [facility] Opiate Screen, Ur Negative Negative LAB CHEMISTRY METHOD 5 4:59 AM [facility] Cannabinoid (THC) Screen, Ur Negative Negative LAB CHEMISTRY METHOD 5 4:59 AM [facility] Comment:Specimens from patie nts taking pantoprazole sodium (Protonix) have been shown to produce false positive results. Oxycodone Screen, Ur Negative Negative LAB CHEMISTRY METHOD 5 4:59 AM [facility] Fentanyl, Ur Negative Negative LAB CHEMISTRY METHOD 5 4:59 AM [facility] Urine Urine specimen obtained by clean catch procedure / Unknown Non-blood Collection / Unknown 10/03/2024 3:47 AM EST 10/03/2024 4:33 AM EST [facility] - 10/03/2024 4:59 AM EST Assay cutoffs: Amphetamines ? 1000 ng/mL Barbiturates ?200 ng/mL Benzodiazepines ?? 200 ng/mL Cocaine ? 300 ng/mL Fentanyl ?1 ng/mL Opiates ? 300 ng/mL Oxycodone ? 100 ng/mL THC ?50 ng/mL Semi-quantitative assay for screening purposes only. Unconfirmed screening result should not be used for non-medical purposes. *ALTERNATE METHOD CONFIRMATION DONE UPON REQUEST ONLY* Pablito Montelongo MD LAB URINE ORDERABLES [facility] [address] [place] [address], * (ABNORMAL) CBC auto differential (10/03/2024 2:19 AM EST) Pathologist [facility] WBC 10.0 4.8 - 10.8 K/mcL LAB HEMETOLOGY METHOD 10/03/2024 2:40 AM [facility] RBC 4.30(L) 4.50 - 5.50 M/[facility] LAB HEMETOLOGY METHOD 10/03/2024 2:40 AM [facility] Hemoglobin 13.0(L) 13.5 - 17.5 g/dL LAB HEMETOLOGY METHOD 10/03/2024 2:40 AM [facility] Hematocrit 38.2(L) 42.0 - 54.0 % LAB HEMETOLOGY METHOD 10/03/2024 2:40 AM [facility] MCV 89.5 79.0 - 98.0 FL LAB HEMETOLOGY METHOD 10/03/2024 2:40 AM [facility] MCH 30.4 27.0 - 32.0 pcg LAB HEMETOLOGY METHOD 10/03/2024 2:40 AM [facility] MCHC 34.0 32.0 - 37.0 g/dL LAB HEMETOLOGY METHOD 10/03/2024 2:40 AM [facility] RDW 13.3 11.0 - 15.0 % LAB HEMETOLOGY METHOD 10/03/2024 2:40 AM [facility] Platelets 378 130 - 400 K/mcL LAB HEMETOLOGY METHOD 10/03/2024 2:40 AM [facility] MPV 9.7 7.0 - 11.0 FL LAB HEMETOLOGY METHOD 10/03/2024 2:40 AM [facility] NRBC 0.0 <1.0 % LAB HEMETOLOGY METHOD 10/03/2024 2:40 AM [facility] NRBC Absolute 0.00 <0.10 K/mcL LAB HEMETOLOGY METHOD 10/03/2024 2:40 AM [facility] Neutrophils Relative 80.6 % LAB HEMETOLOGY METHOD 10/03/2024 2:40 AM [facility] Lymphocytes Relative 11.9 % LAB HEMETOLOGY METHOD 10/03/2024 2:40 AM [facility] Monocytes Relative 6.5 % LAB HEMETOLOGY METHOD 10/03/2024 2:40 AM [facility] Eosinophils Relative 0.2 % LAB HEMETOLOGY METHOD 10/03/2024 2:40 AM [facility] Basophils Relative 0.3 % LAB HEMETOLOGY METHOD 10/03/2024 2:40 AM [facility] Immature Granulocytes Relative 0.5 % LAB HEMETOLOGY METHOD 10/03/2024 2:40 AM [facility] Neutrophils Absolute 8.02(H) 1.50 - 7.00 K/mcL LAB HEMETOLOGY METHOD 10/03/2024 2:40 AM [facility] Lymphocytes Absolute 1.18 1.00 - 5.00 K/mcL LAB HEMETOLOGY METHOD 10/03/2024 2:40 AM EST [facility] Monocytes Absolute 0.65 0.20 - 1.00 K/mcL LAB HEMETOLOGY METHOD 10/03/2024 2:40 AM EST [facility] Eosinophils Absolute 0.02 0.00 - 0.50 K/mcL LAB HEMETOLOGY METHOD 10/03/2024 2:40 AM EST [facility] Basophils Absolute 0.03 0.00 - 0.20 K/[facility] HEMETOLOGY METHOD 10/03/2024 2:40 AM EST [facility] Immature Granulocytes Absolute 0.05(H) 0.00 - 0.03 K/[facility] HEMETOLOGY METHOD 10/03/2024 2:40 AM EST [facility] Blood Venous blood specimen / Unknown Venipuncture / Unknown 10/03/2024 2:19 AM EST 10/03/2024 2:34 AM EST Pablito Montelongo MD LAB BLOOD ORDERABLES [facility] [address] [place] [address], [place] [phone] * Salicylate level (10/03/2024 2:19 AM EST) Salicylate Level 2.0 2.0 - 29.0 mg/dL LAB CHEMISTRY METHOD 10/03/2024 2:59 AM EST [facility] Blood Venous blood specimen / Unknown Venipuncture / Unknown 10/03/2024 2:19 AM EST 10/03/2024 2:34 AM EST Pablito Montelongo MD LAB BLOOD ORDERABLES [facility] [address] [place] [address], [place] [phone] * (ABNORMAL) Acetaminophen level (10/03/2024 2:19 AM EST) Acetaminophen Level <2.0(L) 10.0 - 30.0 mcg/mL LAB CHEMISTRY METHOD 10/03/2024 3:01 AM EST [facility] Blood Venous blood specimen / Unknown Venipuncture / Unknown 10/03/2024 2:19 AM EST 10/03/2024 2:34 AM EST Pablito Montelongo MD LAB BLOOD ORDERABLES Performing Organization Address [facility]/ZIP Co de Phone Number [facility] [address] [place] [address], [place] [phone] * Ethanol (10/03/2024 2:19 AM EST) Ethanol Level <3 0 - 10 mg/dL LAB CHEMISTRY METHOD 10/03/2024 2:59 AM EST [facility] Blood Venous blood specimen / Unknown Venipuncture / Unknown 10/03/2024 2:19 AM EST 10/03/2024 2:34 AM EST Pablito Montelongo MD LAB BLOOD ORDERABLES Performing Organization Address [facility] Co de Phone Number [facility] [address] [place] [address], [place] [phone] * (ABNORMAL) Comprehensive metabolic panel (10/03/2024 2:19 AM EST) Sodium 136 133 - 145 mmol/L LAB CHEMISTRY METHOD 10/03/2024 2:59 AM EST [facility] Potassium 4.1 3.5 - 5.5 mmol/L LAB CHEMISTRY METHOD 10/03/2024 2:59 AM EST [facility] Chloride 103 96 - 110 mmol/L LAB CHEMISTRY METHOD 10/03/2024 2:59 AM EST [facility] CO2 26 21 - 32 mmol/L LAB CHEMISTRY METHOD 10/03/2024 2:59 AM EST [facility] Anion Gap 7 3 - 11 LAB CHEMISTRY METHOD 10/03/2024 2:59 AM [facility] Glucose 103(H) 70 - 100 mg/dL LAB CHEMISTRY METHOD 10/03/2024 2:59 AM [facility] BUN 19 5 - 25 mg/dL LAB CHEMISTRY METHOD 10/03/2024 2:59 AM [facility] Creatinine 0.75 0.70 - 1.30 mg/dL LAB CHEMISTRY METHOD 10/03/2024 2:59 AM [facility] eGFR 115 >=60 mL/min/1. 73m2 LAB CHEMISTRY METHOD 10/03/2024 2:59 AM [facility] Comment:Calculation based on the??Chronic Kidney Disease Epidemiology Collaboration (CKD-EPI) equation refit??without adjustment for race. BUN/Creatinine Ratio 25.3 LAB CHEMISTRY METHOD 10/03/2024 2:59 AM [facility] Calcium 9.6 8.5 - 10.5 mg/dL LAB CHEMISTRY METHOD 10/03/2024 2:59 AM [facility] AST (SGOT) 31 10 - 42 unit/L LAB CHEMISTRY METHOD 10/03/2024 2:59 AM [facility] ALT (SGPT) 48 10 - 60 unit/L LAB CHEMISTRY METHOD 10/03/2024 2:59 AM [facility] Alkaline Phosphatase 95 42 - 121 unit/L LAB CHEMISTRY METHOD 10/03/2024 2:59 AM [facility] Total Protein 7.5 6.0 - 8.0 g/dL LAB CHEMISTRY METHOD 10/03/2024 2:59 AM [facility] Albumin 4.0 3.2 - 5.0 g/dL LAB CHEMISTRY METHOD 10/03/2024 2:59 AM [facility] Total Bilirubin 1.2 0.0 - 1.4 mg/dL LAB CHEMISTRY METHOD 10/03/2024 2:59 AM [facility] Blood Venous blood specimen / Unknown Venipuncture / Unknown 10/03/2024 2:19 AM EST 10/03/2024 2:34 AM EST Pablito Montelongo MD LAB BLOOD ORDERABLES [facility] [address] [place] [address], documented in this encounter Visit Diagnoses Diagnosis Depression, unspecified depression type- Primary Suicidal ideation documented in this encounter Administered Medications Inactive Administered Medications - up to 3 most recent administrations Medication Order MAR Action Action Date Dose Rate Site cloNIDine (CATAPRES) tablet 0.2 mg 0.2 mg, oral, 2 times daily, First dose on Ellie 10/03/24 at 1009 Given 10/03/2024 10:29 AM EST 0.2 mg methadone (DOLOPHINE) tablet 57.5 mg 57.5 mg (rounded from 58 mg), oral, Once, On Lelie 10/03/24 at 0830, For 1 dose Given 10/03/2024 9:06 AM EST 57.5 mg QUEtiapine (SEROquel) tablet 50 mg 50 mg, oral, 2 times daily, First dose on Ellie 10/03/24 at 1009 Given 10/03/2024 10:29 AM EST 50 mg documented in this encounter Historical Medications * This list may reflect changes made after this encounter. Medication Sig Dispensed Refills Start Date End Date cloNIDine (CATAPRES) 0.2 mg tablet Take 1 tablet (0.2 mg total) by mouth 2 (two) times a day. 09/19/2024 QUEtiapine (SEROquel) 50 mg tablet Take 1 tablet (50 mg total) by mouth 2 (two) times a day if needed. 09/19/2024 added in this encounter Active and Recently Administered Medications Times are shown in EST. Scheduled Medication Order 10/01/2024 10/02/2024 10/03/2024 cloNIDine (CATAPRES) tablet 0.2 mg 0.2 mg, oral, 2 times daily, First dose on Ellie 10/03/24 at 1009 1029 (Given - Provid er: Tiff Banegas RN) methadone (DOLOPHINE) tablet 57.5 mg (COMPLETED) 57.5 mg (rounded from 58 mg), oral, Once, On Ellie 10/03/24 at 0830, For 1 dose 0906 (Given - Provid er: Tiff Banegas, RN) QUEtiapine (SEROquel) tablet 50 mg 50 mg, oral, 2 times daily, First dose on Ellie 10/03/24 at 1009 1029 (Given - Provid er: Tiff Banegas, MARTIR) documented in this encounter Orders Medications Ordered That Babatunde ht Not Have Been Administered Count Last Ordered Date First Ordered Date methadone (DOLOPHINE) tablet 57.5 mg 1 09/06 Consult Count Last Ordered Date First Orde red Date IP CONSULT TO REAL ESTATE TRANSACTION MANAGER 1 10/03/2024 documented in this encounter Care Teams Metal Fabricating Supervisor Relationship Specialty Start Date End Date Physician, No Pcp PCP - General 10/03/24 documented as of this encounter
--- OUTSIDE RECORDS SUMMARY | 2024-10-03 18:29 | XMS_ITS | Clinical Summary ---
Author Organization [facility] Address [address] [place] [address] Care Team Providers Care Senior Java Architect Name Role Phone Unavailable Primary Care Provider Unavailabl e Source Comments PLEASE NOTE, if this patient is a minor, it may be UNLAWFUL to discuss sensitive information that is contained in these records (such as FAMILY PLANNING, MENTAL HEALTH or SUBSTANCE ABUSE) with the minor patient's parent or other person without the patient's specific authorization.[facility] Allergies No known active allergies Medications arm brace (WRIST BRACE MEDIUM)Indicatio ns:Carpal tunnel syndrome of right wrist DIAGNOSIS: G56.01 1 Each 0 02/03/2016 Active ibuprofen (ADVIL,MOTRIN) 800 mg tabletIndication s:Right inguinal hernia Take 1 Tab by mouth 3 (three) times daily as needed for pain Take with food. 90 Tab 1 09/15/2016 Active buprenorphine-na loxone (SUBOXONE FILM) 8-2 mg SL filmIndications: Opioid use disorder, severe, dependence ([facility]) Place 1 Strip under the tongue 2 (two) times daily 14 Each 2 06/27/2018 Active Active Problems Problem Noted Date Diagnosed Date History of incarceration 05/18/2018 Overview (05/18/2018): Was incarcearted in [place] for 8 months, in [place] for 3 months and finally [facility] in [place], [place] for 1 1/2 years. He was released 11/04/2014. All time was spent for Distribution. Foraminal stenosis of cervical region 05/18/2018 Overview (05/18/2018): 02/26/18: Ct head and C-spine: Normal head CT. Multifocal degen disc endplate changes with marginal spurring contributing to relatively severe R C5-C6 foraminal stenosis. Heroin abuse ([facility]) 05/10/2018 Overview (05/10/2018): Since 2015 Anxiety and depression 05/13/2016 Insomnia due to anxiety and fear 05/13/2016 Bilateral carpal tunnel syndrome 03/16/2016 Overview (06/09/2018): 02/17/16 - Seen by [facility] declined cortisone injections. 03/21/16 - b/l CTS cortisone injections 01/31/17 - b/l CTS cortisone injections 03/13/18 - [facility] F/U. Plan: splint, Mri and EMG pending. F/U Dr. Gay 6 wks. C/w Gabapnetin 300 mg BID 05/08/18: [facility] F/U. F/U after EMG Right inguinal hernia 09/11/2015 Tobacco abuse disorder 09/11/2015 Family History Medical History Relation Name Comments Heart Problems Father of [place] ag e 58 Cancer Maternal Uncle throat cancer No Known Problems Mother Relation Name Status Comments Father Maternal Uncle Mother Alive Paternal Uncle 1 Paternal Uncle 2 Social History Tobacco Use Types Packs/Day Years Used Date Smoking Tobacco: Every Day Cigarettes 0.3 22 Smokeless Tobacco: Never Tobacco Cessation:Ready to Q uit: No; Counseling Given: No Comments:2-3/day Alcohol Use Standard Drinks/Week Comments No 0 (1 standard drink = 0.6 oz pur e alcohol) Social Connections Answer Date Recorded Social Connections and Isolation 0 04/27/2019 Financial Resource Strain Answer Date R ecorded Financial Resource Strain 0 2018 Stress Answer Date Recorded Stress 0 04/27/2019 Physical Activity Answer Date Recorded Physical Activity 0 04/27/2019 Food Insecurity Answer Date Recorded Food 0 04/27/2019 Transportation Needs Answer Date Record ed Transportation 0 04/27/2019 Housing Stability Answer Date Recorded Housing 0 04/27/2019 Safety and Environment Answer Date Hank rded Safety 0 04/27/2019 Utilities Answer Date Recorded Utilities 0 04/27/2019 Employment Answer Date Recorded Employment 0 04/27/2019 Sex and Gender Information Value Date Recorded Sex Assigned at Male 05/10/2018 10:27 AM PDT Legal Sex Male 11:36 AM PDT Gender Identity Male 05/10/2018 10:27 AM PDT Sexual Orientation Straight 05/10/2018 10 :27 AM PDT Occupation Industry Job Start Date Job End Date unemployed Not on file Not on file Not on file Last Filed Vital Signs Vital Sign Reading Time Taken Comments Blood Pressure 100/70 07/22/2019 9:12 AM EST Pulse 74 07/22/2019 9:12 AM EST Temperature 36.6 ??C (97.8 ??F) 07/22/2019 9:12 AM ES T Respiratory Rate 16 07/22/2019 9:12 AM EST Oxygen Saturation 96% 07/22/2019 9:12 AM EST Inhaled Oxygen Concentration - - Weight 77.1 kg (170 lb) 07/22/2019 9:12 AM EST Height 185.4 cm (6' 1 ) 07/22/2019 9:12 AM EST Body Mass Index 22.43 07/22/2019 9:12 AM EST Plan of Treatment Not on file Insurance [place]ICA[place] D[facility] [facility] D[facility]AL [facility] [place] [address]
--- OUTSIDE RECORDS SUMMARY | 2024-10-03 18:29 | XMS_ITS ---
Author Organization [facility] Address [address] [place] [id number] Care Team Providers Care Belt Changer Name Role Phone No, PCP Primary Care Provider Unavailabl e [facility] Unavailable [phone] REASON FOR VISIT office: insurance switch Problems Problem Type SNOMED Code ICD Code Onset Dates Problem Status W/U Status Risk Notes Problem Sheltered homelessness (437671858715797 ) Sheltered homelessness (Z59.01) Active confirmed Encounters Encounter Location Date Provider Diagnosis [address] [id number] 02/08/2024 Plan Of Treatment No Information Progress Notes * Krishna ARTHURoDOB:[birth year] (44 yo M)Acc No.[id number]:02/08/2024 Patient:?Dejan Arthur Provider:? :1980???Age:43 Y???Sex:Male Rico e:02/08/2024 Address:[address] [place], [place] [id number] Pcp:PCP No Subjective: * Chief Complaints: * ???1. Office: insurance swit ch. * HPI: ???Social Service:?Date of encounter?02/08/24.?Referral Source?Seen at:, [facility].?Action Taken?Insurance eligibility assessed?02/08/2024 [id number] MHSTD JEFFERY Tom submitted,?SNAP application?02/08/2024 Client came in looking to switch to our providers. Assisted client with process on 02/08/24 called [facility] made the switch and also schedule a Intake appt for client.MAYTE submitted, Tracking # [id number]. Client's intake will be on 04/26/24 at 2:00 pm..?Follow-up Required:?yes, Type of follow-up: Check status on insurance switch.?Pt comprehension?Pt agrees with plan, Patient understood process and assisted with process.? * Medical History:? Objective: Assessment: Plan: * Images: Billing Information: Care Plan Details* * Sign off status: Completed true * Provider:?[facility] Date:?02/08/2024 Generated for Olivia obrien/Carlos/Daniele on:?10/03/2024 06:29 PM EST History and Physical Notes * HPI (History of Present Illness) Category Sub-Category Detail Notes Social Service Referral Source Seen at:, [facility] Follow-up Required: yes, Type of follow- up: Check status on insurance switch Pt comprehension Pt agrees with plan, Patient understood process and assisted with process Action Taken Insurance eligibilit y assessed: 02/08/2024 [id number] MITCHELSTJEFFERY Estrada submitted SNAP application: 02/08/2024 Client came in looking to switch to our providers. Assisted client with process on 02/08/24 called [facility] made the switch and also schedule a Intake appt for client., MAYTE submitted, Tracking # [id number]. Client's intake will be on 04/26/24 at 2:00 pm. Date of encounter 02/08/24
--- OUTSIDE RECORDS SUMMARY | 2024-10-03 18:30 | XMS_ITS | Clinical Summary ---
Author Organization [facility] Address [address] [place] [address] Care Team Providers Care Lime Sludge Mixer Name Role Phone Patient, Has No Pcp Or Ref Primary Care Provider Unavailable Allergies Active Allergy Reactions Criticality Noted Date Comments Shellfish Derived Anaphylaxis High 02/04/2024 Medications nicotine (NICODERM CQ) 21 mg/[address] 1 patch on the skin every 24 hours. Active nicotine polacrilex (NICORETTE) [address] 2 mg between cheek and gums as needed for nicotine cravings. Active ondansetron (ZOFRAN) 4 mg tablet Take 4 mg by mouth every 8 hours as needed for nausea or vomiting. Active ARIPiprazole (ABILIFY) 5 mg tablet Take 5 mg by mouth once a day. Active mirtazapine (REMERON) 15 mg tablet Take 15 mg by mouth nightly. Active traZODone (DESYREL) 100 mg tablet Take 100 mg by mouth nightly. Active cloNIDine (CATAPRES) 0.1 mg tablet Take 0.1 mg by mouth 3 times a day as needed for high blood pressure. Active cholecalciferol (VITAMIN D3) 400 unit tablet Take 1,000 Units by mouth once a day. Active thiamine HCl (VITAMIN B1) 100 mg tablet Take 200 mg by mouth once a day. Active Social History Tobacco Use Types Packs/Day Years Used Date Smoking Tobacco: Every Day Cigarettes Smokeless Tobacco: Never Tobacco Cessation:Ready to Q uit: Not Asked; Counseling Given: Not Answered Alcohol Use Standard Drinks/Week Comments Not Currently 0 (1 standard drink = 0.6 oz pur e alcohol) Sex and Gender Information Value Date Recorded Sex Assigned at Male 02/04/2024 10:43 AM EDT Legal Sex Male 10:32 AM EDT Gender Identity Not on file Sexual Orientation Not on file Last Filed Vital Signs Vital Sign Reading Time Taken Comments Blood Pressure 117/77 02/04/2024 3:02 PM EDT Pulse 77 02/04/2024 3:02 PM EDT Temperature 36.7 ??C (98 ??F) 02/04/2024 12:52 PM EDT Respiratory Rate 16 02/04/2024 3:02 PM EDT Oxygen Saturation 99% 02/04/2024 3:02 PM EDT Inhaled Oxygen Concentration - - Weight 81.6 kg (180 lb) 02/04/2024 10:43 AM EDT Height - - Body Mass Index - - Plan of Treatment Health Maintenance Due Date Last Done Comments Hepatitis C Screening 1981 Pneumococcal Vaccine: Pediat sharonda (0-5 Years) and At-Risk Patients (6-64 Years) (1 of 2 - PCV) 1987 Varicella Vaccines (1 of 2 - 13+ 2-dose series) 1993 Hepatitis B Vaccines (1 of 3 - 19+ 3-dose series) 02/02 DTaP,Tdap,and Td Vaccines (1 - Tdap) 2003 COVID-19 Vaccine (1 - 2023-25 season) 2024 Influenza Vaccine (#1) 2024 Alcohol/Substance Use Screening 09/04/2024 Depression Screening and Follow-Up 09/04/2024 Social Drivers of Health Annual Screening 09/04/2024 RSV Vaccine (60+ years old a nd patients) (1 - 1-dose 75+ series) 02/13/2056 HIV Screening Completed 07/22/2019 Abdominal Aortic Aneurysm (AAA) Screening Completed 02/04/2024 Procedures * Due to [place] DIY law, this organization might not be sharing negative HIV tests. Procedure Name Priority Date/Time Associated Diagnosis Comments CT ABDOMEN PELVIS W CONTRAST STAT 02/04/2024 12:48 PM EDT from Last 3 Months or Most Recently Relevant to Health Maintenance Results * Due to [place] DIY law, this organization might not be sharing negative HIV tests. * CT Abd Pelvis W Contrast (02/04/2024 12:48 PM EDT) Anatomical Region Laterality Modality Body Computed Tomogra phy 02/04/2024 1:16 PM EDT Impressions 02/04/2024 1:25 PM EDT No acute abdominopelvic abnormality. If this radiology report contains a blank impression section, it is an incomplete radiology report. ??Please contact the interpreting radiologist or applicable radiology division as soon as possible to obtain the completed interpretation. ? Workstation ID: [id number] Up-to-date CT equipment and radiation dose reduction techniques were employed. CTDIvol: 7.3 mGy. DLP: 424 mGy-cm. Narrative 02/04/2024 1:25 PM EDT EXAMINATION: CT ABDOMEN PELVIS W CONTRAST INDICATION: Abdominal pain TECHNIQUE: Images of the abdomen and pelvis were obtained with intravenous contrast, without oral contrast. Coronal and sagittal reformats were generated. COMPARISON: None available. ?? FINDINGS: LOWER THORAX: The visualized lung bases are clear. HEPATOBILIARY: No focal hepatic lesions. Patent portal and hepatic veins. Normal gallbladder. No biliary ductal dilatation. SPLEEN: No splenomegaly. PANCREAS: No focal masses or ductal dilatation. ADRENAL GLANDS: No adrenal nodules. KIDNEYS/URETERS: No hydronephrosis, calculi, or solid mass lesions. GI TRACT: No distention or wall thickening. Normal appendix. PERITONEUM/RETROPERITONEUM: No ascites or free air. LYMPH NODES: No lymphadenopathy. VESSELS: Unremarkable. PELVIC ORGANS/BLADDER: Unremarkable. BONES AND SOFT TISSUES: Mild degenerative changes of the imaged spine. The abdominal wall is within normal limits. Resulting Agency Comment [id number] Procedure Note Flo Reddy MD - 02/04/2024 EXAMINATION: CT ABDOMEN PELVIS W CONTRAST INDICATION: Abdominal pain TECHNIQUE: Images of the abdomen and pelvis were obtained with intravenouscontrast, without oral contrast. Coronal and sagittal reformats weregenerated. COMPARISON: None available. FINDINGS: LOWER THORAX: The visualized lung bases are clear. HEPATOBILIARY: No focal hepatic lesions. Patent portal and hepatic veins.Normal gallbladder. No biliary ductal dilatation. SPLEEN: No splenomegaly. PANCREAS: No focal masses or ductal dilatation. ADRENAL GLANDS: No adrenal nodules. KIDNEYS/URETERS: No hydronephrosis, calculi, or solid mass lesions. GI TRACT: No distention or wall thickening. Normal appendix. PERITONEUM/RETROPERITONEUM: No ascites or free air. LYMPH NODES: No lymphadenopathy. VESSELS: Unremarkable. PELVIC ORGANS/BLADDER: Unremarkable. BONES AND SOFT TISSUES: Mild degenerative changes of the imaged spine. Theabdominal wall is within normal limits. IMPRESSION: No acute abdominopelvic abnormality. If this radiology report contains a blank impression section, it is anincomplete radiology report. Please contact the interpreting radiologistor applicable radiology division as soon as possible to obtain thecompleted interpretation. Workstation ID: [id number] Up-to-date CT equipment and radiation dose reduction techniques wereemployed. CTDIvol: 7.3 mGy. DLP: 424 mGy-cm. Adria Hernandes MD IMG CT PROCEDURES Final Result from Last 3 Months or Most Recently Relevant to Health Maintenance Insurance [id number] MEDICAID Care Teams Lime Sludge Mixer Relationship Specialty Start Date End Date Patient, Has No Pcp Or Ref DO NOT EDIT THIS RECORD VIA PROVIDER ON THE FLY PCP - General Embosser Operator 02/04/24
--- OUTSIDE RECORDS SUMMARY | 2024-10-03 18:30 | XMS_ITS | Patient Health Record ---
Author Organization [facility] Address [address], [place] [id number] Care Team Providers Care Liquor Blender Name Role Phone No, PCP Primary Care Provider Unavailabl e [facility] Unavailable [phone] [facility], Nursing Unavailable [phone] Reason For Referral No Information Problems Problem Type SNOMED Code ICD Code Onset Dates Problem Status W/U Status Risk Notes Problem Sheltered homelessness (642582117945005 ) Sheltered homelessness (Z59.01) Active confirmed Encounters Encounter Location Date Provider Diagnosis [id number] [place], [place] [id number] 02/08/2024 [facility] Assessments Encounter Date Diagnosis (ICD Code) Assessment Notes Treatment Notes Treatment Clinical Notes 04/26/2024 Other Plan Of Treatment No Information Insurance Providers Payer Name Payer Address Payer Phone Subscriber Number Group Number Insured Name Patient Relationship to Insured Coverage Start Date Coverage End Date [place] Medicaid Standard [address] [place] [address] [id number] Dejan Harris Self - patient is the insured
--- OUTSIDE RECORDS SUMMARY | 2024-10-03 18:30 | XMS_ITS | Clinical Summary ---
Author Organization [facility] Address [address] [place] [address] Phone Care Team Providers Care Automatic Serging Machine Operator Name Role Phone Physician, No Pcp Primary Care Provider Unavaila ble Allergies Active Allergy Reactions Criticality Noted Date Comments Shellfish Containing Products Anaphylaxis,Shortness of breath High 10/03/2024 Shellfish Derived Anaphylaxis High 02/04/2024 Medications Medication Sig Dispensed Refills Start Date End Date Status QUEtiapine (SEROquel) 50 mg tablet Take 1 tablet (50 mg total) by mouth 2 (two) times a day if needed. 09/19/2024 Active cloNIDine (CATAPRES) 0.2 mg tablet Take 1 tablet (0.2 mg total) by mouth 2 (two) times a day. 09/19/2024 Active Encounters Date Type Department Care Team Description 10/03/2024 2:09 AM EST - 10/03/2024 3:06 PM EST Emergency [facility] Emergency [address] [place] [address] Channing Ramirez MD Depression, unspecified depression type (Primary Dx); Suicidal ideation Discharge Disposition: [facility] from Last 3 Months Social History Tobacco Use Types Packs/Day Years [...] Mass Index 24.41 10/03/2024 2:09 AM EST Plan of Treatment Health Maintenance Due Date Last Done Comments Pneumococcal Vaccine: Pediatrics (0 to 5 Years) and At-Risk Patients (6 to 64 Years) (1 of 2 - PCV) 1987 DTaP,Tdap,and Td Vaccines (1 - Tdap) 02/13/2000 Hepatitis A Vaccines (1 of 2 - Risk 2-dose series) 02/13/2000 Hepatitis B Vaccines (1 of 3 - 19+ 3-dose series) 02/13/2000 Depression Screening 08/06/2022 Hepatitis C Screening 08/06/2022 Social Influencers of Health Screening 08/06/2022 COVID-19 Vaccine (1 - 2023-2 5 season) 2024 Influenza Vaccine (#1) 2024 Cholesterol Screening (Lipid Panel) 07/22/2024 07/22/2019, 07/22/2019 HIV Screening Completed 07/22/2019 HIB Vaccines Aged Out No longer eligi ble based on patient's age to complete this topic HPV Vaccines Aged Out No longer eligi ble based on patient's age to complete this topic IPV Vaccines Aged Out No longer eligi ble based on patient's age to complete this topic MMR Vaccines Aged Out No longer eligi ble based on patient's age to complete this topic Meningococcal ACWY Vaccine Aged Out N o longer eligible based on patient's age to complete this topic RSV Immunization Patients Under 20 months Aged Out No longer eligible b ased on patient's age to complete this topic Varicella Vaccines Aged Out No longer eligible based on patient's age to complete this topic Procedures Procedure Name Priority Date/Time Associated Diagnosis Comments ECG 12-LEAD STAT 10/03/2024 12:26 PM EST METHADONE SCREEN, URINE STAT 10/03/2024 3:47 AM EST PHENCYCLIDINE, URINE STAT 10/03/2024 3:47 AM EST BUPRENORPHINE SCREEN, URINE STAT 10/03/2024 3:47 AM EST DRUG ABUSE SCREEN 8A PANEL, URINE STAT 10/03/2024 3:47 AM EST CBC WITH AUTO DIFFERENTIAL STAT 10/03/2024 2:19 AM EST SALICYLATE LEVEL STAT 10/03/2024 2:19 AM EST ACETAMINOPHEN LEVEL STAT 10/03/2024 2 :19 AM EST ETHANOL STAT 10/03/2024 2:19 AM EST COMPREHENSIVE METABOLIC PANEL STAT 10/03/2024 2:19 AM EST CBC AND DIFFERENTIAL STAT 10/03/2024 2:19 AM EST from Last 3 Months Results * (ABNORMAL) Drug abuse screen 8a panel, urine (10/03/2024 3:47 AM EST) Amphetamine Screen, Ur Negative Negative LAB CHEMISTRY METHOD 5 4:59 AM [facility] Comment:Certain OTC medicati ons containing ephedrine, phenylephrine, pseudoephedrine and phenylpropanolamine can cause false positive results. Barbiturate Screen, Ur Negative Negative LAB CHEMISTRY METHOD 5 4:59 AM [facility] Benzodiazepine Screen, Ur Negative Negative LAB CHEMISTRY METHOD 5 4:59 AM [facility] Cocaine Screen, Ur Positive(A ) Negative LAB CHEMISTRY METHOD 5 4:59 AM [facility] Opiate Screen, Ur Negative Negative LAB CHEMISTRY METHOD 5 4:59 AM [facility] Cannabinoid (THC) Screen, Ur Negative Negative LAB CHEMISTRY METHOD 5 4:59 AM EST [facility] Comment:Specimens from patie nts taking pantoprazole sodium (Protonix) have been shown to produce false positive results. Oxycodone Screen, Ur Negative Negative LAB CHEMISTRY METHOD 5 4:59 AM EST [facility] Fentanyl, Ur Negative Negative LAB CHEMISTRY METHOD 5 4:59 AM EST [facility] Urine Urine specimen obtained by clean catch procedure / Unknown Non-blood Collection / Unknown 10/03/2024 3:47 AM EST 10/03/2024 4:33 AM EST [facility] - 10/03/2024 4:59 AM EST Assay [...] ONLY* Pablito Montelongo MD LAB URINE ORDERABLES [facility] [address] [place] [address], * Buprenorphine screen, urine (10/03/2024 3:47 AM EST) Buprenorphine Screen Urine Negative Negative LAB CHEMISTRY METHOD 10/03/2024 4:59 AM EST [facility] Urine Urine specimen obtained by clean catch procedure / Unknown Non-blood Collection / Unknown 10/03/2024 3:47 AM EST 10/03/2024 4:33 AM EST Narrative [facility] - 10/03/2024 4:59 AM EST Assay cutoff 5 ng/mL Semi-quantitative assay for screening purposes only. Unconfirmed screening result should not be used for non-medical purposes. *ALTERNATE METHOD CONFIRMATION DONE UPON REQUEST ONLY* Pablito Montelongo MD LAB URINE ORDERABLES Performing Organization Address [facility] de Phone Number [facility] [address] [place] [address], * (ABNORMAL) Methadone, urine (10/03/2024 3:47 AM EST) Methadone Screen, Urine Positive (A) Negative LAB CHEMISTRY METHOD 10/03/2024 4:59 AM EST [facility] Comment: Assay cutoff 300 ng/mL Semi-quantitative assay for screening purposes only. Unconfirmed screening result should not be used for non-medical purposes. *ALTERNATE METHOD CONFIRMATION DONE UPON REQUEST ONLY* Urine Urine specimen obtained by clean catch procedure / Unknown Non-blood Collection / Unknown 10/03/2024 3:47 AM EST 10/03/2024 4:33 AM EST Pablito Montelongo MD LAB URINE ORDERABLES Performing Organization Address [facility] de Phone Number [facility] [address] [place] [address], * Phencyclidine, urine (10/03/2024 3:47 AM EST) PCP Scrn, Ur Negative Negative LAB CHEMISTRY METHOD 10/03/2024 4:59 AM EST [facility] Comment: Assay cutoff 25 ng/mL Semi-quantitative assay for screening purposes only. Unconfirmed screening result should not be used for non-medical purposes. *ALTERNATE METHOD CONFIRMATION DONE UPON REQUEST ONLY* Urine Urine specimen obtained by clean catch procedure / Unknown Non-blood Collection / Unknown 10/03/2024 3:47 AM EST 10/03/2024 4:33 AM EST Pablito Montelongo MD LAB URINE ORDERABLES [facility] [address] [place] [address], * (ABNORMAL) CBC auto differential (10/03/2024 2:19 AM EST) WBC 10.0 4.8 - 10.8 K/mcL LAB HEMETOLOGY METHOD 10/03/2024 2:40 AM [facility] RBC 4.30(L) 4.50 - 5.50 M/mcL LAB HEMETOLOGY METHOD 10/03/2024 2:40 AM [facility] Hemoglobin 13.0(L) 13.5 - 17.5 g/dL LAB HEMETOLOGY METHOD 10/03/2024 2:40 AM [facility] Hematocrit 38.2(L) 42.0 - 54.0 % LAB HEMETOLOGY METHOD 10/03/2024 2:40 AM [facility] MCV 89.5 79.0 - 98.0 FL LAB HEMETOLOGY METHOD 10/03/2024 2:40 AM [facility] MCH 30.4 27.0 - 32.0 pcg LAB HEMETOLOGY METHOD 10/03/2024 2:40 AM [facility] MCHC 34.0 32.0 - 37.0 g/dL LAB HEMETOLOGY METHOD 10/03/2024 2:40 AM [facility] RDW 13.3 11.0 - 15.0 % LAB HEMETOLOGY METHOD 10/03/2024 2:40 AM [facility] Platelets 378 130 - 400 K/mcL LAB HEMETOLOGY METHOD 10/03/2024 2:40 AM [facility] MPV 9.7 7.0 - 11.0 FL LAB HEMETOLOGY METHOD 10/03/2024 2:40 AM [facility] NRBC 0.0 <1.0 % LAB HEMETOLOGY METHOD 10/03/2024 2:40 AM [facility] NRBC Absolute 0.00 <0.10 K/mcL LAB HEMETOLOGY METHOD 10/03/2024 2:40 AM [facility] Neutrophils Relative 80.6 % LAB HEMETOLOGY METHOD 10/03/2024 2:40 AM [facility] Lymphocytes Relative 11.9 % LAB HEMETOLOGY METHOD 10/03/2024 2:40 AM [facility] Monocytes Relative 6.5 % LAB HEMETOLOGY METHOD 10/03/2024 2:40 AM [facility] Eosinophils Relative 0.2 % LAB HEMETOLOGY METHOD 10/03/2024 2:40 AM [facility] Basophils Relative 0.3 % LAB HEMETOLOGY METHOD 10/03/2024 2:40 AM [facility] Immature Granulocytes Relative 0.5 % LAB HEMETOLOGY METHOD 10/03/2024 2:40 AM [facility] Neutrophils Absolute 8.02(H) 1.50 - 7.00 K/mcL LAB HEMETOLOGY METHOD 10/03/2024 2:40 AM [facility] Lymphocytes Absolute 1.18 1.00 - 5.00 K/mcL LAB HEMETOLOGY METHOD 10/03/2024 2:40 AM [facility] Monocytes Absolute 0.65 0.20 - 1.00 K/mcL LAB HEMETOLOGY METHOD 10/03/2024 2:40 AM [facility] Eosinophils Absolute 0.02 0.00 - 0.50 K/mcL LAB HEMETOLOGY METHOD 10/03/2024 2:40 AM [facility] Basophils Absolute 0.03 0.00 - 0.20 K/mcL LAB HEMETOLOGY METHOD 10/03/2024 2:40 AM EST [facility] Immature Granulocytes Absolute 0.05(H) 0.00 - 0.03 K/mcL LAB HEMETOLOGY METHOD 10/03/2024 2:40 AM EST [facility] Blood Venous blood specimen / Unknown Venipuncture / Unknown 10/03/2024 2:19 AM EST 10/03/2024 2:34 AM EST Pablito Montelogno MD LAB BLOOD ORDERABLES Performing Organization Address City/[facility]/ZIP Co de Phone Number [facility] [address] [place] [address], [place] [phone] * Ethanol (10/03/2024 2:19 AM EST) Ethanol Level <3 0 - 10 mg/dL LAB CHEMISTRY METHOD 10/03/2024 2:59 AM EST [facility] Blood Venous blood specimen / Unknown Venipuncture / Unknown 10/03/2024 2:19 AM EST 10/03/2024 2:34 AM EST Pablito Montelongo MD LAB BLOOD ORDERABLES Performing Organization Address [facility] de Phone Number [facility] [address] [place] [address], [place] [phone] * (ABNORMAL) Acetaminophen level (10/03/2024 2:19 AM EST) Acetaminophen Level <2.0(L) 10.0 - 30.0 mcg/mL LAB CHEMISTRY METHOD 10/03/2024 3:01 AM EST [facility] Blood Venous blood specimen / Unknown Venipuncture / Unknown 10/03/2024 2:19 AM EST 10/03/2024 2:34 AM EST Pablito Montelongo MD LAB BLOOD ORDERABLES Performing Organization Address City/[facility]/ZIP Co de Phone Number [facility] [address] [place] [address], [place] [phone] * Salicylate level (10/03/2024 2:19 AM EST) Pathologist [facility] Salicylate Level 2.0 2.0 - 29.0 mg/dL LAB CHEMISTRY METHOD 10/03/2024 2:59 AM EST [facility] Blood Venous blood specimen / Unknown Venipuncture / Unknown 10/03/2024 2:19 AM EST 10/03/2024 2:34 AM EST Pablito Montelongo MD LAB BLOOD ORDERABLES [facility] [address] [place] [address], [place] [phone] * (ABNORMAL) Comprehensive metabolic panel (10/03/2024 2:19 AM EST) [facility] Sodium 136 133 - 145 mmol/L LAB CHEMISTRY METHOD 10/03/2024 2:59 AM [facility] Potassium 4.1 3.5 - 5.5 mmol/L LAB CHEMISTRY METHOD 10/03/2024 2:59 AM [facility] Chloride 103 96 - 110 mmol/L LAB CHEMISTRY METHOD 10/03/2024 2:59 AM [facility] CO2 26 21 - 32 mmol/L LAB CHEMISTRY METHOD 10/03/2024 2:59 AM [facility] Anion Gap 7 3 - 11 LAB CHEMISTRY METHOD 10/03/2024 2:59 AM [facility] Glucose 103(H) 70 - 100 mg/dL LAB CHEMISTRY METHOD 10/03/2024 2:59 AM [facility] BUN 19 5 - 25 mg/dL LAB CHEMISTRY METHOD 10/03/2024 2:59 AM [facility] Creatinine 0.75 0.70 - 1.30 mg/dL LAB CHEMISTRY METHOD 10/03/2024 2:59 AM [facility] eGFR 115 >=60 mL/min/1. 73m2 LAB CHEMISTRY METHOD 10/03/2024 2:59 AM [facility] Comment:Calculation based on the??Chronic Kidney Disease Epidemiology Collaboration (CKD-EPI) equation refit??without adjustment for race. BUN/Creatinine Ratio 25.3 LAB CHEMISTRY METHOD 10/03/2024 2:59 AM [facility] Calcium 9.6 8.5 - 10.5 mg/dL LAB CHEMISTRY METHOD 10/03/2024 2:59 AM [facility] AST (SGOT) 31 10 - 42 unit/L LAB CHEMISTRY METHOD 10/03/2024 2:59 AM [facility] ALT (SGPT) 48 10 - 60 unit/L LAB CHEMISTRY METHOD 10/03/2024 2:59 AM [facility] Alkaline Phosphatase 95 42 - 121 unit/L LAB CHEMISTRY METHOD 10/03/2024 2:59 AM [facility] Total Protein 7.5 6.0 - 8.0 g/dL LAB CHEMISTRY METHOD 10/03/2024 2:59 AM [facility] Albumin 4.0 3.2 - 5.0 g/dL LAB CHEMISTRY METHOD 10/03/2024 2:59 AM [facility] Total Bilirubin 1.2 0.0 - 1.4 mg/dL LAB CHEMISTRY METHOD 10/03/2024 2:59 AM [facility] Blood Venous blood specimen / Unknown Venipuncture / Unknown 10/03/2024 2:19 AM EST 10/03/2024 2:34 AM EST Pablito Montelongo MD LAB BLOOD ORDERABLES [facility] [address] [place] [address], from Last 3 Months Care Teams Automatic Serging Machine Operator Relationship Specialty Start Date End Date Physician, No Pcp PCP - General 10/03/24
--- OUTSIDE RECORDS SUMMARY | 2024-10-03 18:30 | XMS_ITS ---
Author Organization [facility] Address [address] [place] [phone] Care Team Providers Care Commercial Green Retrofit Architect Name Role Phone No, PCP Primary Care Provider Unavailabl e [facility], [facility] Unavailable [phone] [facility], Nursing Unavailable [phone] REASON FOR VISIT office: Intake Encounters Encounter Location Date Provider Diagnosis [address] [id number] 04/26/2024 Nursing [facility] Encounter for screening for COVID-19 Z11.52 Assessments Encounter Date Diagnosis (ICD Code) Assessment Notes Treatment Notes Treatment Clinical Notes 04/26/2024 Encounter for screening for COVID-19 (ICD-10 - Z11.52) Covid screening is negative. Discussed in detail with patient how to practice social distancing by avoiding public spaces and crowds now, wearing a mask in public to keep nose and mouth covered, and washing hands frequently especially before eating and after using the bathroom. Return to clinic if you develop any symtpoms of concern to be rescreened or go to the emergency room if you are having concerning symptoms for COVID-19. 04/26/2024 Other Plan Of Treatment Treatment Notes Assessment Notes Encounter for screening for COVID-19 Cov id screening is negative. Discussed in detail with patient how to practice social distancing by avoiding public spaces and crowds now, wearing a mask in public to keep nose and mouth covered, and washing hands frequently especially before eating and after using the bathroom. Return to clinic if you develop any symtpoms of concern to be rescreened or go to the emergency room if you are having concerning symptoms for COVID-19. Progress Notes * Krishna ARTHURoDOB:[birth year] (44 yo M)Acc No.[id number]:04/26/2024 Progress Notes Patient:?Dejan ARTHUR Provider:?Provider [facility] :1980???Age:44 Y???Sex:Male Rico e:04/26/2024 Address:[address] [place], [place] [id number] Pcp:PCP No Subjective: * Chief Complaints: * ???1. office: Intake. * ROS:?No acute C/P no acute SOB, No problem with urine, No heartburn or abdominal pain. Endorses being able to climb one fight of stairs without stopping due to SOB, Mood: stable, appetite: good, sleeping well. Denies new skin rashes. * Medical History:? Objective: * Vitals:? Assessment: * Assessment: 1.?Encounter for screening f or COVID-19 - Z11.52 (Primary)??? Plan: * Treatment: * Images: Billing Information: * Visit Code:? * Procedure Codes:? * Electronic signature of Marielena humphrey [facility] on 10/03/2024 at 06:29 PM EST Sign off status: Pending * Provider:?Provider [facility] Date:?04/26/2024 Generated for Olivia obrien/Carlos/Ryanitting on:?10/03/2024 06:29 PM EST
--- OUTSIDE RECORDS SUMMARY | 2024-10-03 18:30 | XMS_ITS | Referral Summary ---
Author Organization [facility] Address [address] [place] [address] Care Team Providers Care Substation Operator Helper Generation Name Role Phone Patient, Has No Pcp [...] Mass Index - - Plan of Treatment Not on file Procedures * Due to [place] [employer] law, this organization might not be sharing negative HIV tests. Procedure Name Priority Date/Time Associated Diagnosis Comments CT ABDOMEN PELVIS W CONTRAST STAT 02/04/2024 12:48 PM EDT from Last 3 Months or Most Recently Relevant to Health Maintenance Results * Due to [place] [employer] law, this organization might not be sharing [...] obtain the completed interpretation. ? Workstation ID: [id number] Up-to-date CT equipment and radiation dose reduction [...] is within normal limits. Resulting Agency Comment [id number] Procedure Note Flo Reddy MD - 02/04/2024 [...] possible to obtain thecompleted interpretation. Workstation ID: [id number] Up-to-date CT equipment and radiation dose reduction techniques wereemployed. CTDIvol: 7.3 mGy. DLP: 424 mGy-cm. Adria Hernandes MD IMG CT PROCEDURES Final Result from Last 3 Months or Most Recently Relevant to Health Maintenance Insurance [facility] MEDICAID Care Teams Substation Operator Helper Generation Relationship Specialty Start Date End Date Patient, Has No Pcp Or Ref DO NOT EDIT THIS RECORD VIA PROVIDER ON THE FLY PCP - General Rotary Rock Drilling Machine Operator 02/04/24
[2024-10-03 20:00] VITALS: BP 113/60; PULSE 85; RESP 16; TEMP 36.8; O2SAT 97
[2024-10-03] MEDS: Prazosin HCL 1 MG CAPSULE PO (20:45)
[2024-10-03] MEDS: cloNIDine HCL 0.2 MG TABLET PO (20:45)
[2024-10-03] MEDS: Mirtazapine 30 MG TABLET PO (20:45)
[2024-10-03] MEDS: QUEtiapine Fumarate 50 MG TABLET 150 MG PO (20:45)
[2024-10-04 07:50] VITALS: BP 115/55; PULSE 64; RESP 14; TEMP 36.9; O2SAT 96
[2024-10-04] MEDS: QUEtiapine Fumarate 50 MG TABLET PO ×2 (08:06→15:13)
[2024-10-04] MEDS: cloNIDine HCL 0.2 MG TABLET PO ×2 (08:06→20:28)
[2024-10-04] MEDS: methADONE HCl 20 MG/2 ML ORAL.CONC 57.5 MG PO (11:10)
--- NOTE | 2024-10-04 12:43 | P.CONHOSP_ITS ---
History of Present Illness Data of Consult Service Date: 10/04/24 Primary Care Provider: None Physician [facility] Reason for consult: Admission H&P Pt is a 44-year-old male with a PMH significant for?anemia, polysubstance use disorder on methadone, PTSD, and MDD who is admitted to psychiatry unit for increasing depression and vague SI. Pt also has been feeling unsafe around family members. Pt presented to [facility] ED only a few hours after being discharged from inpatient psych facility. Medical consult for admission H&P. ?Pt reports he has been feeling depressed and increasingly fatigued with the past month. States has a diagnosis of anemia, but has not yet undergone full workup to determine etiology. Also complains for the past 10 years of urinary hesitancy and dribbling with up to 5-6 trips to the bathroom during the night. Is worried about his prostate, though has yet to be evaluated or worked up outpatient. Pt otherwise has no acute medical complaints. Denies shortness or breath, difficulty breathing, cough. No headache or acute vision changes. Denies fever, chills, nausea, vomiting, abdominal pain. No chest pain/pressure, palpitations. Labs from [facility] reviewed, H&H 13.0/38.2. Review of Systems Review of Systems: Negative except for that which is stated in the HPI [facility] Medical History (Updated 10/04/24 @ 15:44 by KAREN Chou) Urinary frequency Anemia Substance use disorder Social History Household Members: Other Household Members Other:: Mother Housing: Apartment Do you presently have visiting nurse or other home services: No Alcohol intake: never Patient Tobacco Use Status: Current everyday Tobacco user Tobacco use type: Cigarette Cigarettes Per Day: 3 Years Smoked: 30 Smoked in Last 30 Days: Yes e-Cigarette/Vaping Use: Never Used Patient Interested in Nicotine Replacement: Yes Patient Given Instructions on How to Stop Smoking: Yes Date Education Initiated: 10/03/24 Second Hand Smoke Exposure: No Substance Use Type: Crack/Cocaine, Heroin, Marijuana, Opiates, Painkillers and Prescription Drugs Substance Use Type Other:: history of substance use: sober 8 months Substance Use Frequency: Chronic Longstanding Last Used Substance: Just Prior to Admission Currently Displaying Signs/Symptoms of Drug Intoxication Withdrawal: No Any prior treatment program specific to substance use: Yes Have you been hit, kicked, punched, or otherwise hurt by someone within the past year? If so, by whom?: No Do you feel safe in your current relationship?: No Current Relationship Is there a partner from a previous relationship who is making you feel unsafe now?: No Are you made to feel afraid or neglected: No Judaism Healthcare Practices: I believe in GOD Advance Directives: No Advance Directives Information Provided: No Do you have thoughts of harming others: None Do you have a plan to hurt others: No Plan Recently lost weight without trying: No Eating poorly because of decreased appetite: No Nutrition Risks: No Nutritional Risk Poor oral hygiene: Yes (poor dentition) service: No Sexual orientation: Straight/Heterosexual Meds Allergies Allergy/AdvReac Type Severity Reaction Status Date / Time seafood Allergy Anaphylaxis Verified 09/24/24 19:42 Active Medications: Current Medications Acetaminophen (Acetaminophen 325 Mg Tablet) 650 mg PO Q6H PRN PRN Reason: Headache/Pain Mild Scale (1-3) Al Hydroxide/Mg Hydroxide (Magnesium Hydrox/Alum Hydrox 30 Ml Oral.Susp) 30 ml PO Q6H PRN PRN Reason: Heartburn/Nausea Clonidine HCl (Clonidine Hcl 0.2 Mg Tablet) 0.2 mg PO BID [facility]; Protocol Last Admin: 10/04/24 08:06 Dose: 0.2 mg Hydroxyzine HCl (Hydroxyzine Hcl 50 Mg Tablet) 50 mg PO TID PRN PRN Reason: anxiety Last Admin: 10/03/24 16:32 Dose: 50 mg Magnesium Hydroxide (Milk Of Magnesia 30 Ml Oral.Susp) 30 ml PO DAILY PRN PRN Reason: Constipation Methadone HCl (Methadone Hcl 20 Mg/2 Ml Oral.Conc) 57.5 mg PO DAILY@0800 [facility] Last Admin: 10/04/24 09:33 Dose: Not Given Mirtazapine (Mirtazapine 30 Mg Tablet) 30 mg PO BEDTIME [facility] Last Admin: 10/03/24 20:45 Dose: 30 mg Nicotine (Nicotine 21 Mg Patch.Td24) 21 mg TRANSDERMA DAILY [facility] Last Admin: 10/04/24 08:08 Dose: Not Given Nicotine Polacrilex (Nicotine Polacrilex 2 Mg Gum) 4 mg BUCCAL Q2H PRN PRN Reason: Nicotine Cravings Prazosin HCl (Prazosin Hcl 1 Mg Capsule) 1 mg PO BEDTIME [facility]; Protocol Last Admin: 10/03/24 20:45 Dose: 1 mg Quetiapine Fumarate (Quetiapine Fumarate 50 Mg Tablet) 150 mg PO BEDTIME [facility] Last Admin: 10/03/24 20:45 Dose: 150 mg Quetiapine Fumarate (Quetiapine Fumarate 50 Mg Tablet) 50 mg PO BID@0900,1500 [facility] Last Admin: 10/04/24 08:06 Dose: 50 mg Home Medications ?Medication ?Instructions ?Recorded ?Confirmed ?Last Taken ?Type nicotine 7 mg/24 hr daily 1 patch topical DAILY 11/15/22 10/03/24 09/24/24 History transdermal patch methadone 10 mg/mL oral 57.5 mg PO DAILY@0800 09/24/24 10/03/24 10/03/24 09:00 History concentrate (Methadose) 57.5 nicotine (polacrilex) 2 mg gum 2 mg PO Q2H PRN Nicotine Cravings 10/03/24 10/03/24 10/01/24 21:00 History ([place]) Physical Exam Vital Signs and Narrative: Vital Signs: Last Vital Signs Temp 98.4 F 10/04/24 07:50 Pulse 64 10/04/24 07:50 Resp 14 10/04/24 07:50 BP 115/55 L 10/04/24 07:50 Pulse Ox 96 10/04/24 07:50 O2 Del Method Room Air 10/04/24 07:50 BMI result Body Mass Index 25.5 General: AOx3, no acute distress Resp: CTA bilaterally CVS: S1, S2, RRR GI: +BS, NT, no distention Skin: Warm, dry Neuro: Cranial nerves II-XII grossly intact bilaterally. Motor grossly intact bilaterally Extremities: No edema Assessment and Plan (1) Medical clearance for psychiatric admission: Status: Acute Plan Pt is a 44-year-old male with a PMH significant for?anemia, polysubstance use disorder on methadone, PTSD, and MDD who is admitted to psychiatry unit for increasing depression and vague SI. Pt also has been feeling unsafe around family members. Pt presented to [facility] ED only a few hours after being discharged from inpatient psych facility. Medical consult for admission H&P. Mood disorder Plan as per Psychiatry Anemia H&H stable at 13 0.0/38.2 Unclear etiology Follow up outpatient for additional workup Question of BPH Pt reports urinary hesitancy, frequency, multiple nocturnal trips to the bathroom x10 years Pt already prazosin at bedtime Follow up outpatient for additional treatment/workup Thank you for allowing us to participate in the care of this patient. Signing off at this time. Please re-consult if any acute complaints or issues arise.
--- NOTE | 2024-10-04 13:23 | P.PNPSI_ITS ---
Subjective Subjective Date of Service: 10/04/24 Reason For Visit: Unspec Depressive D/O Stimulant Use D/O Interim History: sleeping heavily. startles awake. irritable, dismissive. doesn't waqnt to meet with MD. does seem to say he feels sad during the day and may be interested in medication changes, but not talk to MD right now. per staff, +SI, no plan. slept 7 hours. refusing labs. taking meds. Mental Status Exam Mental Status Exam Narrative: Pt is alert and oriented; behavior is not cooperative, irritable; dressed in casual attire; mood is described as sad ; eye contact poor; Speech is normal rate, volume and not pressured; thought process is organized; Thought content is on feeling not well and wanting to be left alone; no SI/HI/VH/AH expressed. Diagnostics Vital Signs (24Hr): Vital Signs - 24 hr 10/03/24 14:45 10/03/24 20:00 10/04/24 07:50 Temperature 98.9 F 98.3 F 98.4 F Pulse Rate 82 85 64 Respiratory Rate 18 16 14 Blood Pressure 107/71 113/60 115/55 L Pulse Oximetry 97 97 96 Oxygen Delivery Method Room Air Room Air Room Air BMI result Body Mass Index 25.5 Medications Medications Current Medications Acetaminophen (Acetaminophen 325 Mg Tablet) 650 mg PO Q6H PRN PRN Reason: Headache/Pain Mild Scale (1-3) Al Hydroxide/Mg Hydroxide (Magnesium Hydrox/Alum Hydrox 30 Ml Oral.Susp) 30 ml PO Q6H PRN PRN Reason: Heartburn/Nausea Clonidine HCl (Clonidine Hcl 0.2 Mg Tablet) 0.2 mg PO BID [facility]; Protocol Last Admin: 10/04/24 08:06 Dose: 0.2 mg Hydroxyzine HCl (Hydroxyzine Hcl 50 Mg Tablet) 50 mg PO TID PRN PRN Reason: anxiety Last Admin: 10/03/24 16:32 Dose: 50 mg Magnesium Hydroxide (Milk Of Magnesia 30 Ml Oral.Susp) 30 ml PO DAILY PRN PRN Reason: Constipation Methadone HCl (Methadone Hcl 20 Mg/2 Ml Oral.Conc) 57.5 mg PO DAILY@0800 [facility] Last Admin: 10/04/24 09:33 Dose: Not Given Mirtazapine (Mirtazapine 30 Mg Tablet) 30 mg PO BEDTIME [facility] Last Admin: 10/03/24 20:45 Dose: 30 mg Nicotine (Nicotine 21 Mg Patch.Td24) 21 mg TRANSDERMA DAILY [facility] Last Admin: 10/04/24 08:08 Dose: Not Given Nicotine Polacrilex (Nicotine Polacrilex 2 Mg Gum) 4 mg BUCCAL Q2H PRN PRN Reason: Nicotine Cravings Prazosin HCl (Prazosin Hcl 1 Mg Capsule) 1 mg PO BEDTIME [facility]; Protocol Last Admin: 10/03/24 20:45 Dose: 1 mg Quetiapine Fumarate (Quetiapine Fumarate 50 Mg Tablet) 150 mg PO BEDTIME [facility] Last Admin: 10/03/24 20:45 Dose: 150 mg Quetiapine Fumarate (Quetiapine Fumarate 50 Mg Tablet) 50 mg PO BID@0900,1500 [facility] Last Admin: 10/04/24 08:06 Dose: 50 mg Allergies Allergies Allergy/AdvReac Type Severity Reaction Status Date / Time seafood Allergy Anaphylaxis Verified 09/24/24 19:42 Assessment & Plan Assessment & Plan (1) MDD (major depressive disorder), recurrent episode: Status: Acute Code(s): F33.9 - Major depressive disorder, recurrent, unspecified (2) PTSD (post-traumatic stress disorder): Status: Acute Code(s): F43.10 - Post-traumatic stress disorder, unspecified (3) Opioid use disorder: Status: Acute Code(s): F11.90 - Opioid use, unspecified, uncomplicated (4) Cocaine use disorder: Status: Acute Code(s): F14.10 - Cocaine abuse, uncomplicated Plan Patient is a 44-year-old male with history of MDD, PTSD, opiate use disorder and cocaine use disorder who presented to [facility] due to suicidal ideation secondary to increased depressive symptoms after an argument with his family. Plan: CV 15 minute safety checks Continue home medications Encourage groups Discharge planning 10/04: irritable, dismissive. doesn't want to speak with MD. continue current mgmt for now. Reason for continued inpatient stay Substantial Risk for: inability to function Time Spent With Patient Time: Total time managing care of this patient today ____ minutes.
[2024-10-04 20:00] VITALS: BP 102/60; PULSE 78; RESP 16; TEMP 37.1; O2SAT 95
[2024-10-04] MEDS: hydrOXYzine HCL 50 MG TABLET PO (20:28)
[2024-10-04] MEDS: Prazosin HCL 1 MG CAPSULE PO (20:28)
[2024-10-04] MEDS: QUEtiapine Fumarate 50 MG TABLET 150 MG PO (20:28)
[2024-10-04] MEDS: Mirtazapine 30 MG TABLET PO (20:28)
[2024-10-04] MEDS: Acetaminophen 325 MG TABLET 650 MG PO (20:47)
--- NOTE | 2024-10-05 08:46 | HO.PSYCHPN ---
Subjective Subjective Date of Service: 10/05/24 Reason For Visit: Unspec Depressive D/O Stimulant Use D/O Subjective Notes: Conditional Voluntary Interim History: Laying in bed. Out of room at times. Pt reports feeling a little better ; states he slept well last night. denies any issues at this time. denies SI/HI/VH/AH. Continue current tx plan. Medication Compliance: Yes Side effects from medications: No Attending Groups: No Mental Status Exam Mental Status Exam Narrative: Pt is alert and oriented; behavior is cooperative, calm; dressed in casual attire; mood is described as alittle better ; eye contact good; Speech is normal rate, volume and not pressured; thought process is organized; Thought content is tx; denies SI/HI/VH/AH. Diagnostics Vital Signs (24Hr): Vital Signs - 24 hr 10/04/24 20:00 Temperature 98.7 F Pulse Rate 78 Respiratory Rate 16 Blood Pressure 102/60 Pulse Oximetry 95 Oxygen Delivery Method Room Air BMI result Body Mass Index 25.5 Medications Medications Current Medications Acetaminophen (Acetaminophen 325 Mg Tablet) 650 mg PO Q6H PRN PRN Reason: Headache/Pain Mild Scale (1-3) Last Admin: 10/04/24 20:47 Dose: 650 mg Al Hydroxide/Mg Hydroxide (Magnesium Hydrox/Alum Hydrox 30 Ml Oral.Susp) 30 ml PO Q6H PRN PRN Reason: Heartburn/Nausea Clonidine HCl (Clonidine Hcl 0.2 Mg Tablet) 0.2 mg PO BID [facility]; Protocol Last Admin: 10/04/24 20:28 Dose: 0.2 mg Hydroxyzine HCl (Hydroxyzine Hcl 50 Mg Tablet) 50 mg PO TID PRN PRN Reason: anxiety Last Admin: 10/04/24 20:28 Dose: 50 mg Magnesium Hydroxide (Milk Of Magnesia 30 Ml Oral.Susp) 30 ml PO DAILY PRN PRN Reason: Constipation Methadone HCl (Methadone Hcl 20 Mg/2 Ml Oral.Conc) 57.5 mg PO DAILY@0800 [facility] Last Admin: 10/04/24 09:33 Dose: Not Given Mirtazapine (Mirtazapine 30 Mg Tablet) 30 mg PO BEDTIME [facility] Last Admin: 10/04/24 20:28 Dose: 30 mg Nicotine (Nicotine 21 Mg Patch.Td24) 21 mg TRANSDERMA DAILY [facility] Last Admin: 10/04/24 08:08 Dose: Not Given Nicotine Polacrilex (Nicotine Polacrilex 2 Mg Gum) 4 mg BUCCAL Q2H PRN PRN Reason: Nicotine Cravings Prazosin HCl (Prazosin Hcl 1 Mg Capsule) 1 mg PO BEDTIME [facility]; Protocol Last Admin: 10/04/24 20:28 Dose: 1 mg Quetiapine Fumarate (Quetiapine Fumarate 50 Mg Tablet) 150 mg PO BEDTIME [facility] Last Admin: 10/04/24 20:28 Dose: 150 mg Quetiapine Fumarate (Quetiapine Fumarate 50 Mg Tablet) 50 mg PO BID@0900,1500 [facility] Last Admin: 10/04/24 15:13 Dose: 50 mg Allergies Allergies Allergy/AdvReac Type Severity Reaction Status Date / Time seafood Allergy Anaphylaxis Verified 09/24/24 19:42 Assessment & Plan Assessment & Plan (1) MDD (major depressive disorder), recurrent episode: Status: Acute Code(s): F33.9 - Major depressive disorder, recurrent, unspecified (2) PTSD (post-traumatic stress disorder): Status: Acute Code(s): F43.10 - Post-traumatic stress disorder, unspecified (3) Opioid use disorder: Status: Acute Code(s): F11.90 - Opioid use, unspecified, uncomplicated (4) Cocaine use disorder: Status: Acute Code(s): F14.10 - Cocaine abuse, uncomplicated Plan Patient is a 44-year-old male with history of MDD, PTSD, opiate use disorder and cocaine use disorder who presented to [facility] due to suicidal ideation secondary to increased depressive symptoms after an argument with his family. Plan: CV 15 minute safety checks Continue home medications Encourage groups Discharge planning 10/04: irritable, dismissive. doesn't want to speak with MD. continue current mgmt for now. 10/05: Laying in bed. Out of room at times. Pt reports feeling a little better ; states he slept well last night. denies any issues at this time. denies SI/HI/VH/AH. Continue current tx plan. encouraged to attend groups. Patient educated on: medication risk/benefits Reason for continued inpatient stay Substantial Risk for: med/psych decompensation Time Spent With Patient Time: Total time managing care of this patient today _20___ minutes.
[2024-10-05 08:57] VITALS: BP 108/68; PULSE 81; RESP 16; TEMP 36.6; O2SAT 99
[2024-10-05] MEDS: QUEtiapine Fumarate 50 MG TABLET PO ×2 (08:57→15:27)
[2024-10-05] MEDS: cloNIDine HCL 0.2 MG TABLET PO ×2 (08:57→20:18)
[2024-10-05] MEDS: methADONE HCl 20 MG/2 ML ORAL.CONC 57.5 MG PO (09:02)
[2024-10-05] MEDS: Nicotine Polacrilex 2 MG GUM 4 MG BUCCAL (09:05)
[2024-10-05 20:00] VITALS: BP 112/60; PULSE 72; RESP 16; TEMP 36.8; O2SAT 97
[2024-10-05] MEDS: hydrOXYzine HCL 50 MG TABLET PO (20:17)
[2024-10-05] MEDS: Mirtazapine 30 MG TABLET PO (20:17)
[2024-10-05] MEDS: QUEtiapine Fumarate 50 MG TABLET 150 MG PO (20:18)
[2024-10-05] MEDS: Prazosin HCL 1 MG CAPSULE PO (20:18)
[2024-10-06 07:42] VITALS: BP 117/60; PULSE 64; RESP 16; TEMP 36.9; O2SAT 99
--- NOTE | 2024-10-06 09:02 | HO.PSYCHPN ---
Subjective Subjective Date of Service: 10/06/24 Reason For Visit: Unspec Depressive D/O Stimulant Use D/O Subjective Notes: Conditional Voluntary Interim History: Laying in bed. per nursing, out of his room more in the evening. Pt reports feeling better ; pt stated, I plan on going to [place] and staying at my cousins house. 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 denies SI/HI/VH/AH. Medication Compliance: Yes Side effects from medications: No Attending Groups: No Mental Status Exam Mental Status Exam Narrative: Pt is alert and oriented; behavior is cooperative, calm; dressed in casual attire; mood is described as better ; good eye contact; Speech is normal rate, volume and not pressured; thought process is organized; Thought content is on discharge; denies SI/HI/VH/AH. Diagnostics Vital Signs (24Hr): Vital Signs - 24 hr 10/05/24 20:00 10/06/24 07:42 Temperature 98.2 F 98.4 F Pulse Rate 72 64 Respiratory Rate 16 16 Blood Pressure 112/60 117/60 Pulse Oximetry 97 99 Oxygen Delivery Method Room Air Room Air BMI result Body Mass Index 25.5 Medications Medications Current Medications Acetaminophen (Acetaminophen 325 Mg Tablet) 650 mg PO Q6H PRN PRN Reason: Headache/Pain Mild Scale (1-3) Last Admin: 10/04/24 20:47 Dose: 650 mg Al Hydroxide/Mg Hydroxide (Magnesium Hydrox/Alum Hydrox 30 Ml Oral.Susp) 30 ml PO Q6H PRN PRN Reason: Heartburn/Nausea Clonidine HCl (Clonidine Hcl 0.2 Mg Tablet) 0.2 mg PO BID [facility]; Protocol Last Admin: 10/05/24 20:18 Dose: 0.2 mg Hydroxyzine HCl (Hydroxyzine Hcl 50 Mg Tablet) 50 mg PO TID PRN PRN Reason: anxiety Last Admin: 10/05/24 20:17 Dose: 50 mg Magnesium Hydroxide (Milk Of Magnesia 30 Ml Oral.Susp) 30 ml PO DAILY PRN PRN Reason: Constipation Methadone HCl (Methadone Hcl 20 Mg/2 Ml Oral.Conc) 57.5 mg PO DAILY@0800 [facility] Last Admin: 10/05/24 09:02 Dose: 57.5 mg Mirtazapine (Mirtazapine 30 Mg Tablet) 30 mg PO BEDTIME [facility] Last Admin: 10/05/24 20:17 Dose: 30 mg Nicotine (Nicotine 21 Mg Patch.Td24) 21 mg TRANSDERMA DAILY [facility] Last Admin: 10/06/24 07:53 Dose: Not Given Nicotine Polacrilex (Nicotine Polacrilex 2 Mg Gum) 4 mg BUCCAL Q2H PRN PRN Reason: Nicotine Cravings Last Admin: 10/05/24 09:05 Dose: 4 mg Prazosin HCl (Prazosin Hcl 1 Mg Capsule) 1 mg PO BEDTIME [facility]; Protocol Last Admin: 10/05/24 20:18 Dose: 1 mg Quetiapine Fumarate (Quetiapine Fumarate 50 Mg Tablet) 150 mg PO BEDTIME [facility] Last Admin: 10/05/24 20:18 Dose: 150 mg Quetiapine Fumarate (Quetiapine Fumarate 50 Mg Tablet) 50 mg PO BID@0900,1500 [facility] Last Admin: 10/05/24 15:27 Dose: 50 mg Allergies Allergies Allergy/AdvReac Type Severity Reaction Status Date / Time seafood Allergy Anaphylaxis Verified 09/24/24 19:42 Assessment & Plan Assessment & Plan (1) MDD (major depressive disorder), recurrent episode: Status: Acute Code(s): F33.9 - Major depressive disorder, recurrent, unspecified (2) PTSD (post-traumatic stress disorder): Status: Acute Code(s): F43.10 - Post-traumatic stress disorder, unspecified (3) Opioid use disorder: Status: Acute Code(s): F11.90 - Opioid use, unspecified, uncomplicated (4) Cocaine use disorder: Status: Acute Code(s): F14.10 - Cocaine abuse, uncomplicated Plan Patient is a 44-year-old male with history of MDD, PTSD, opiate use disorder and cocaine use disorder who presented to [facility] due to suicidal ideation secondary to increased depressive symptoms after an argument with his family. Plan: CV 15 minute safety checks Continue home medications Encourage groups Discharge planning 10/04: irritable, dismissive. doesn't want to speak with MD. continue current mgmt for now. 10/05: Laying in bed. Out of room at times. Pt reports feeling a little better ; states he slept well last night. denies any issues at this time. denies SI/HI/VH/AH. Continue current tx plan. encouraged to attend groups. 10/06: Laying in bed. per nursing, out of his room more in the evening. Pt reports feeling better ; pt stated, I plan on going to [place] and staying at my cousins house. 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 denies SI/HI/VH/AH. continue current tx plan Patient educated on: medication risk/benefits Reason for continued inpatient stay Substantial Risk for: med/psych decompensation Time Spent With Patient Time: Total time managing care of this patient today _20___ minutes.
[2024-10-06 10:19] VITALS: BP 117/60
[2024-10-06] MEDS: cloNIDine HCL 0.2 MG TABLET PO ×2 (10:19→20:32)
[2024-10-06] MEDS: QUEtiapine Fumarate 50 MG TABLET PO ×2 (10:20→15:58)
[2024-10-06] MEDS: methADONE HCl 20 MG/2 ML ORAL.CONC 57.5 MG PO (10:25)
[2024-10-06 20:00] VITALS: BP 111/66; PULSE 78; RESP 16; TEMP 36.9; O2SAT 97
[2024-10-06] MEDS: Mirtazapine 30 MG TABLET PO (20:32)
[2024-10-06] MEDS: Prazosin HCL 1 MG CAPSULE PO (20:32)
[2024-10-06] MEDS: QUEtiapine Fumarate 50 MG TABLET 150 MG PO (20:32)
[2024-10-07 07:55] VITALS: BP 110/57; PULSE 68; RESP 12; TEMP 36.6; O2SAT 97
[2024-10-07] MEDS: cloNIDine HCL 0.2 MG TABLET PO ×2 (09:26→20:27)
[2024-10-07] MEDS: QUEtiapine Fumarate 50 MG TABLET PO ×2 (09:27→14:49)
--- NOTE | 2024-10-07 11:22 | HO.PSYCHPN ---
Subjective Subjective Date of Service: 10/07/24 Reason For Visit: Unspec Depressive D/O Stimulant Use D/O Subjective Notes: Conditional Voluntary Interim History: Keeping to self. not attending groups. Pt reports feeling good ; pt asking to be discharged home tomorrow. Pt stated, I'm going to go to my moms house and my cousin will pick me up from there . denies SI/HI/VH/AH. He plans on following up with his outpatient providers. Medication Compliance: Yes Side effects from medications: No Attending Groups: No Mental Status Exam Mental Status Exam Narrative: Pt is alert and oriented; behavior is cooperative, calm; dressed in casual attire; mood is described as good ; eye contact good; Speech is normal rate, volume and not pressured; thought process is organized; Thought content is discharge; denies SI/HI/VH/AH. Diagnostics Vital Signs (24Hr): Vital Signs - 24 hr 10/06/24 20:00 10/07/24 07:55 Temperature 98.4 F 97.9 F Pulse Rate 78 68 Respiratory Rate 16 12 Blood Pressure 111/66 110/57 L Pulse Oximetry 97 97 Oxygen Delivery Method Room Air Room Air BMI result Body Mass Index 25.5 Medications Medications Current Medications Acetaminophen (Acetaminophen 325 Mg Tablet) 650 mg PO Q6H PRN PRN Reason: Headache/Pain Mild Scale (1-3) Last Admin: 10/04/24 20:47 Dose: 650 mg Al Hydroxide/Mg Hydroxide (Magnesium Hydrox/Alum Hydrox 30 Ml Oral.Susp) 30 ml PO Q6H PRN PRN Reason: Heartburn/Nausea Clonidine HCl (Clonidine Hcl 0.2 Mg Tablet) 0.2 mg PO BID [facility]; Protocol Last Admin: 10/07/24 09:26 Dose: 0.2 mg Hydroxyzine HCl (Hydroxyzine Hcl 50 Mg Tablet) 50 mg PO TID PRN PRN Reason: anxiety Last Admin: 10/05/24 20:17 Dose: 50 mg Magnesium Hydroxide (Milk Of Magnesia 30 Ml Oral.Susp) 30 ml PO DAILY PRN PRN Reason: Constipation Methadone HCl (Methadone Hcl 20 Mg/2 Ml Oral.Conc) 57.5 mg PO DAILY@0800 [facility] Last Admin: 10/07/24 10:09 Dose: Not Given Mirtazapine (Mirtazapine 30 Mg Tablet) 30 mg PO BEDTIME [facility] Last Admin: 10/06/24 20:32 Dose: 30 mg Nicotine (Nicotine 21 Mg Patch.Td24) 21 mg TRANSDERMA DAILY [facility] Last Admin: 10/07/24 09:28 Dose: Not Given Nicotine Polacrilex (Nicotine Polacrilex 2 Mg Gum) 4 mg BUCCAL Q2H PRN PRN Reason: Nicotine Cravings Last Admin: 10/05/24 09:05 Dose: 4 mg Prazosin HCl (Prazosin Hcl 1 Mg Capsule) 1 mg PO BEDTIME [facility]; Protocol Last Admin: 10/06/24 20:32 Dose: 1 mg Quetiapine Fumarate (Quetiapine Fumarate 50 Mg Tablet) 150 mg PO BEDTIME [facility] Last Admin: 10/06/24 20:32 Dose: 150 mg Quetiapine Fumarate (Quetiapine Fumarate 50 Mg Tablet) 50 mg PO BID@0900,1500 [facility] Last Admin: 10/07/24 09:27 Dose: 50 mg Allergies Allergies Allergy/AdvReac Type Severity Reaction Status Date / Time seafood Allergy Anaphylaxis Verified 09/24/24 19:42 Assessment & Plan Assessment & Plan (1) MDD (major depressive disorder), recurrent episode: Status: Acute Code(s): F33.9 - Major depressive disorder, recurrent, unspecified (2) PTSD (post-traumatic stress disorder): Status: Acute Code(s): F43.10 - Post-traumatic stress disorder, unspecified (3) Opioid use disorder: Status: Acute Code(s): F11.90 - Opioid use, unspecified, uncomplicated (4) Cocaine use disorder: Status: Acute Code(s): F14.10 - Cocaine abuse, uncomplicated Plan Patient is a 44-year-old male with history of MDD, PTSD, opiate use disorder and cocaine use disorder who presented to [facility] due to suicidal ideation secondary to increased depressive symptoms after an argument with his family. Plan: CV 15 minute safety checks Continue home medications Encourage groups Discharge planning 10/04: irritable, dismissive. doesn't want to speak with MD. continue current mgmt for now. 10/05: Laying in bed. Out of room at times. Pt reports feeling a little better ; states he slept well last night. denies any issues at this time. denies SI/HI/VH/AH. Continue current tx plan. encouraged to attend groups. 2/3: Keeping to self. not attending groups. Pt reports feeling good ; pt asking to be discharged home tomorrow. Pt stated, I'm going to go to my moms house and my cousin will pick me up from there . denies SI/HI/VH/AH. He plans on following up with his outpatient providers Patient educated on: diagnosis and medication risk/benefits Reason for continued inpatient stay Substantial Risk for: stable for discharge Time Spent With Patient Time: Total time managing care of this patient today _20___ minutes.
[2024-10-07] MEDS: methADONE HCl 20 MG/2 ML ORAL.CONC 57.5 MG PO (12:33)
[2024-10-07 20:00] VITALS: BP 106/61; PULSE 92; RESP 16; TEMP 37.1; O2SAT 98
[2024-10-07] MEDS: QUEtiapine Fumarate 50 MG TABLET 150 MG PO (20:26)
[2024-10-07] MEDS: hydrOXYzine HCL 50 MG TABLET PO (20:26)
[2024-10-07] MEDS: Prazosin HCL 1 MG CAPSULE PO (20:27)
[2024-10-07] MEDS: Mirtazapine 30 MG TABLET PO (20:27)
[2024-10-08 08:00] VITALS: BP 107/62; PULSE 71; TEMP 36.6; O2SAT 98
[2024-10-08] MEDS: methADONE HCl 20 MG/2 ML ORAL.CONC 57.5 MG PO (08:32)
[2024-10-08] MEDS: QUEtiapine Fumarate 50 MG TABLET PO (08:33)
[2024-10-08] MEDS: cloNIDine HCL 0.2 MG TABLET PO (08:33)
--- NOTE | 2024-10-08 08:59 | PM.PSYDC ---
DS: Providers Provider Date of Service: 10/08/24 Date of admission: 10/03/24 14:31 Date of discharge: 10/08/24 Primary care physician: Daina Physician Admitting clinician: Monse Hearn Attending physician on admission: Edmundo Puentes Consults: 10/03/24 14:39 Consult to Hospitalist Routine Comment: Consulting Provider: [facility] Hospitalists Reason For Exam: H&P new admit Attending physician on discharge: Edmundo Puentes Discharging clinician: Monse Hearn DS: Diagnosis Discharge Diagnosis (1) MDD (major depressive disorder), recurrent episode: Status: Acute (2) PTSD (post-traumatic stress disorder): Status: Acute (3) Opioid use disorder: Status: Acute (4) Cocaine use disorder: Status: Acute DS: Medications Discharge Medications Home Medications: Home Medications ?Medication ?Instructions ?Recorded ?Confirmed nicotine 7 mg/24 hr daily 1 patch topical DAILY 11/15/22 10/03/24 transdermal patch methadone 10 mg/mL oral 57.5 mg PO DAILY@0800 09/24/24 10/03/24 concentrate (Methadose) nicotine (polacrilex) 2 mg gum 2 mg PO Q2H PRN Nicotine Cravings 10/03/24 10/03/24 (Nicorette) Previous Rx's ?Medication ?Instructions ?Recorded clonidine HCl 0.2 mg tablet 0.2 mg PO BID 30 days #60 tabs 10/01/24 hydroxyzine HCl 50 mg tablet 50 mg PO TID PRN anxiety 30 days 10/01/24 #90 tabs mirtazapine 30 mg tablet 30 mg PO BEDTIME 30 days #30 tabs 10/01/24 prazosin 1 mg capsule 1 mg PO BEDTIME 30 days #30 caps 10/01/24 quetiapine 150 mg tablet 150 mg PO BEDTIME 30 days #30 tabs 10/01/24 quetiapine 50 mg tablet 50 mg PO BID@0900,1500 30 days #60 10/01/24 tabs Mental Status Exam Mental Status Exam Narrative: Pt is alert and oriented; behavior is cooperative, calm; dressed in casual attire; mood is described as good ; eye contact good; Speech is normal rate, volume and not pressured; thought process is organized; Thought content is on discharge; denies SI/HI/VH/AH. DS: Summary Hospital Course Hospital Course: Patient is a 44-year-old male with history of MDD, PTSD, opiate use disorder and cocaine use disorder who presented to [facility] due to suicidal ideation secondary to increased depressive symptoms after an argument with his family. Per crisis report, after being discharged from [facility] patient presented to [facility] ED reporting vague suicidal ideation due to depression and stressors. He denied HI/AH/VH. Utox positive for cocaine and methadone. He reported feeling unsafe around his family members. pt reported racing thoughts all day and it becoming too much. During admission assessment, patient presents alert and oriented x3. Calm and cooperative. Patient reports that after he left the hospital he went to his mother's house and his brother was there. Patient stated, he was talking about drugs in front of my mom. I got into drugs because of him and he was able to get out of it, but it is harder for me. He was acting like he was better than me. I grabbed a knife thinking about hurting him and myself but, I put it down and went outside. I used some cocaine after the argument and went to [facility] . Patient denies SI/HI/VH/AH. patient is requesting to stay inpatient to stabilize his mood and possibly returned to his mother's house. Plan: CV 15 minute safety checks Continue home medications Encourage groups Discharge planning irritable, dismissive. doesn't want to speak with MD. continue current mgmt for now. Laying in bed. Out of room at times. Pt reports feeling a little better ; states he slept well last night. denies any issues at this time. denies SI/HI/VH/AH. Continue current tx plan. encouraged to attend groups. Keeping to self. not attending groups. Pt reports feeling good ; pt asking to be discharged home tomorrow. Pt stated, I'm going to go to my moms house and my cousin will pick me up from there . denies SI/HI/VH/AH. He plans on following up with his outpatient providers Patient reports feeling good ; states he is looking forward to moving with his cousin and plans on staying sober. denies SI/HI/VH/AH. Plans on following up with his outpatient providers. Status at Discharge Cognitive/behavioral status at discharge: Patient has insight and demonstrates good judgment in terms of wanting to pursue treatment. Patient has a safety plan that includes presenting to the closest ER or calling 911 if feeling unsafe. Functional status at discharge: independent ambulation Overall status at discharge: patient is back to baseline Time Spent with Patient Time attestation: Total time managing care of this patient today _20___ minutes. Time spent: Less than 30 minutes Discharge Plan Discharge Anticipated Discharge Date/Time: 10/08/24 11:00 Patient Disposition: Home, Self-Care Discharge Diagnosis: MDD, PTSD, opioid use d/o, cocaine use d/o Referrals: Yoshi Vidales (Therapy) [Other] - 10/10/24 11:00 am (IN OFFICE APPOINTMENT -Please arrive 15 minutes early to your appointment in order to complete necessary paperwork. ) Riya Roger (Psychiatry) [Other] - 11/07/24 9:00 am (TELEHEALTH APPOINTMENT -Psychiatric Evaluation ) Riya Roger (Psychiatry) [Other] - 12/06/24 10:40 am (TELEHEALTH APPOINTMENT -Medication Management ) [facility] [Provider Group] - 1 Week (10-07-24 [facility] was added to patients chart. Please call [phone] to schedule your follow up appt within 7-10 days from discharge.) Discharge Medications: Continued nicotine 7 mg/24 hr patch 24 hour 1 patch topical DAILY Patient Comments: no longer using methadone [Methadose] 10 mg/mL concentrate 57.5 mg PO DAILY@0800 Rx Instructions: Partial Fill upon patient request. hydroxyzine HCl 50 mg Tablet 50 mg PO TID PRN (Reason: anxiety) 30 Days Qty: 90 0RF prazosin 1 mg Capsule 1 mg PO BEDTIME 30 Days Qty: 30 0RF Protocol: Hold for SBP< HOLD for SBP < : 90 quetiapine 50 mg Tablet 50 mg PO BID@0900,1500 30 Days Qty: 60 0RF clonidine HCl 0.2 mg tablet 0.2 mg PO BID 30 Days Qty: 60 0RF mirtazapine 30 mg Tablet 30 mg PO BEDTIME 30 Days Qty: 30 0RF quetiapine 150 mg tablet 150 mg PO BEDTIME 30 Days Qty: 30 0RF nicotine (polacrilex) [Nicorette] 2 mg gum 2 mg PO Q2H PRN (Reason: Nicotine Cravings) Discharge Orders: Discharge Order (Routine); Ordered 10/08/24 Ordered By: Monse Hearn Diet: Regular diet Activity on Discharge: As tolerated Stand Alone Forms: Patient Portal Discharge page, Community Support Print Language: Thai Care Plan Goals: Maintain mood and safe behaviors Take medications as prescribed Continue to pursue sobriety Practice coping skills Continue with outpatient providers and reach out to them as needed Health Concerns: Mood stability and behaviors Sobriety Plan of Treatment: Follow up with your PCP, psychiatric provider and other outpatient providers regarding above concerns Take medications as prescribed Assessment: Patient has insight and demonstrates good judgment in terms of wanting to pursue treatment. Patient has a safety plan that includes presenting to the closest ER or calling 911 if feeling unsafe. Discharge Date/Time: 10/08/24 10:20
[2024-10-08] MEDS: Naloxone HCl Nasal TAKE HOME 4 MG SPRAY 8 MG NOSTRILALT (10:44)
--- NOTE | 2024-10-08 11:01 | PC.NURSE ---
Patient easily engaged. Reports mood has improved. Depression okay . No reported anxiety at this time. Denies SI/HI plan or intent. Planning to go to bus following discharge. States he wants to go to Methadone clinic, go to friends house, cousin will pick him up there. No reported cravings or urges to use at this time. Narcan given to patient on discharge, instructions provided. Discharge paperwork reviewed with patient, reports understanding. Medications reviewed with patient, reports understanding. Follow up appointments reviewed with patient, reports understanding. All belongings taken with patient. Crisis numbers provided to patient.
== END 2024-10-08 10:20 | disposition home or self-care (01) | DRG 751 ==
PROVIDERS: Admitting Provider Psychiatry & Neurology Psychiatry; Responsible Provider Registered Nurse; Visit Provider Psychiatry & Neurology Psychiatry
DX: F33.9 Major depressive disorder, recurrent, unspecified (principal); F11.20 Opioid dependence, uncomplicated; F17.210 Nicotine dependence, cigarettes, uncomplicated; F14.10 Cocaine abuse, uncomplicated; F43.10 Post-traumatic stress disorder, unspecified; Z71.6 Tobacco abuse counseling; Z79.899 Other long term (current) drug therapy

== ENCOUNTER → 2024-10-03 14:31 | Outpatient (BNV) | payer MEDICAID, SELFPAY | PROVIDERS: Admitting Provider Psychiatry & Neurology Psychiatry; Responsible Provider Registered Nurse; Visit Provider Student in an Organized Health Care Education/Training Program | DX: Z00.8 Encounter for other general examination (principal) | CPT/HCPCS: 99222 ==

== ENCOUNTER → 2024-10-03 14:31 | Outpatient (BNV) | payer OTHER, SELFPAY | PROVIDERS: Admitting Provider Psychiatry & Neurology Psychiatry; Responsible Provider Registered Nurse; Visit Provider Registered Nurse | DX: F33.2 Major depressive disorder, recurrent severe without psychotic features (principal); F14.10 Cocaine abuse, uncomplicated; F11.90 Opioid use, unspecified, uncomplicated; F43.11 Post-traumatic stress disorder, acute | CPT/HCPCS: 99231; 99233 ==

== ENCOUNTER → 2025-09-02 07:43 | Outpatient (BNV) | payer MEDICAID, SELFPAY | PROVIDERS: Admitting Provider Registered Nurse; Emergency Provider Emergency Medicine; Visit Provider Internal Medicine | DX: Z13.6 Encounter for screening for cardiovascular disorders (principal) | CPT/HCPCS: 93010 ==

== ENCOUNTER → 2025-09-02 14:39 | Outpatient (BNV) | payer OTHER, SELFPAY | PROVIDERS: Admitting Provider Registered Nurse; Emergency Provider Emergency Medicine; Visit Provider Psychiatry & Neurology Psychiatry | DX: F33.2 Major depressive disorder, recurrent severe without psychotic features (principal); F14.10 Cocaine abuse, uncomplicated; F11.90 Opioid use, unspecified, uncomplicated; F43.11 Post-traumatic stress disorder, acute | CPT/HCPCS: 99232 ==

== ENCOUNTER → 2025-09-02 14:39 | Outpatient (BNV) | payer MEDICAID, SELFPAY | PROVIDERS: Admitting Provider Registered Nurse; Emergency Provider Emergency Medicine; Visit Provider Nurse Practitioner Family | DX: D50.9 Iron deficiency anemia, unspecified (principal) | CPT/HCPCS: 99221 ==